=== PATIENT | female | born 1955 | race Caucasian/White ===

== ENCOUNTER 2016-09-13 10:49 | Emergency (ER) | payer MEDICARE ==
--- NOTE | 2016-09-13 11:33 | C.PDOC ---
Addendum entered and electronically signed by Yue Ugalde PA-C 19:15: Physician Patient Turnover - . Patient Signed Over To: Mireille Kumar Handoff Comments: PENDING REPEAT HEAD CT AND DISPO INDICATED Original Note: History Of Present Illness <Yue Ugalde - Last Filed: 09/13/16 19:14> <Mireille Kumar - Last Filed: 09/13/16 20:14> 61-year-old female, PMHx includes Alzheimers and Dementia, presents to the emergency department, brought in by ambulance, accompanied by family with complaints of head injury. Family reports hearing a "thump" after which patient was found on floor, and appeared to have fallen. Patient may have hit her head on the side-table. She was awake and alert, with blood coming from a wound on the head. All other Hx limited due to Alzheimers and Dementia. (Yue Ugalde) - HPI History Per: Patient History/Exam Limitations: no limitations Onset/Duration Of Symptoms: Other (YOUTH COORDINATOR) <Yue Ugalde - Last Filed: 09/13/16 19:14> <Mireille Kumar - Last Filed: 09/13/16 20:14> - HPI Time Seen by Provider: 09/13/16 11:08 Chief Complaint (Nursing): Trauma Past Medical History Reviewed: Historical Data, Nursing Documentation, Vital Signs - Medical History PMH: Alzheimer's Disease, Dementia Family History: States: Unknown Family Hx - Social History Hx Tobacco Use: No Hx Alcohol Use: No Hx Substance Use: No - Immunization History Hx Tetanus Toxoid Vaccination: No Hx Influenza Vaccination: Yes Hx Pneumococcal Vaccination: No <Yue Ugalde - Last Filed: 09/13/16 19:14> Review Of Systems Review Of Systems: ROS cannot be obtained secondary to pt's inabilty to answer questions. <Yue Ugalde - Last Filed: 09/13/16 19:14> Physical Exam - Physical Exam Appears: Well, Non-toxic, No Acute Distress Skin: Warm, Dry Head: Normacephalic, No Swelling (face ), Laceration (0.5cm puncture wound to the left parietal scalp with active bleeding, localized hematoma.), No Other ( facial bone tenderness or asymmetry) Eye(s): bilateral: Normal Inspection, PERRL Nose: Normal Oral Mucosa: Moist Lips: Normal Appearing Neck: Normal ROM, Supple Chest: Symmetrical, No Tenderness Cardiovascular: Rhythm Regular Respiratory: Normal Breath Sounds, No Accessory Muscle Use Gastrointestinal/Abdominal: Normal Exam, Soft Back: Normal Inspection Extremity: Normal ROM Extremity: Bilateral: Atraumatic, Normal Color And Temperature Neurological/Psych: Normal Speech, Other (alert and awake, pt is at her baseline as per family) Gait: Unable To Assess (pt is in stretcher) <Yue Ugalde - Last Filed: 09/13/16 19:14> ED Course And Treatment O2 Sat by Pulse Oximetry: 97 - CT Scan/US CT HEAD Other Rad Studies (CT/US): Read By Radiologist, Radiology Report Reviewed CT/US Interpretation: Accession No. : [id number]. Patient Name / ID : THOMAS MIRANDA / [id number]. Exam Date : 09/13/2016 12:36:36 ( Approved ). Study Comment : Sex / Age : F / 61Y. Creator : Heriberto Aleman. Dictator : Heriberto Aleman. Tank Builder Supervisor : Oyster Cultivator : Heriberto Aleman. Approver2 : Report Date : 09/13/2016 13:46:34. My Comment : . PROCEDURE: CT HEAD WITHOUT CONTRAST. HISTORY: head trauma. COMPARISON: Comparison is made to the previous study dated 08/14/2012. TECHNIQUE: Axial computed tomography images were obtained through the head/brain without intravenous contrast. Radiation dose: Total exam DLP = 973.9 mGy-cm. This CT exam was performed using one or more of the following dose reduction techniques: Automated exposure control, adjustment of the mA and/or kV according to patient size, and/ or use of iterative reconstruction technique. FINDINGS: HEMORRHAGE: Small focus of high attenuation seen at the midline in the frontal upper portion of the brain suspicious for small acute fracture new compared to the previous exam. Otherwise no evidence of acute intracranial hemorrhage. BRAIN: No mass effect or edema. Moderate atrophy and white matter changes are again seen. VENTRICLES: Unremarkable. No hydrocephalus. CALVARIUM: No evidence of acute fracture. Left frontal parietal scalp soft tissue swelling is seen. PARANASAL SINUSES: Unremarkable as visualized. No significant inflammatory changes. MASTOID AIR CELLS: Unremarkable as visualized. No inflammatory changes. OTHER FINDINGS: None. IMPRESSION: New small focus of high attenuation seen at the midline in the upper frontal region image 22 series 2 new compared to the previous exam and suspicious for small subdural hematoma. Close follow-up reassessment after 6 hours is suggested. Otherwise no significant interval change since the previous exam. Moderate atrophy and [id number] white matter changes. <Yue Ugalde - Last Filed: 09/13/16 19:14> Progress <Yue Ugalde - Last Filed: 09/13/16 19:14> <Mireille Kumar - Last Filed: 09/13/16 20:14> - Re-Evaluation Re-evaluation Note: 09/13/16 20:[address] IMPROVED COMPARED TO PRIOR. VSS PT APPEARS NAD, NEURO GROSS INTACT. FAMILY STATES PT IS @ BASELINE. AGREE W DC HOME (Mireille Kumar) Medical Decision Making <Yue Ugalde - Last Filed: 09/13/16 19:14> <Mireille Kumar - Last Filed: 09/13/16 20:14> Medical Decision Making: Plan: * CT Head * Tenivac * Reassess and Disposition PROCEDURE: LACERATION REPAIR Performed by the emergency provider Location: left parietal scalp Length: .5 cm Description: clean wound edges Distal CMS: Normal. No deficits. Neurovascularly intact. Preparation: The wound was cleaned with NS and [place]. The area was prepped and draped in the usual sterile fashion. Exploration: The wound was explored and no foreign bodies were found. Procedure: The wound was closed with 3 yue. Post-Procedure: Good closure and hemostasis. The patient tolerated the procedure well and there were no complications. CSM remains intact. Post procedure dressing applied. ( Yue Ugalde) Disposition - Disposition Disposition Time: 18:58 <Yue Ugalde - Last Filed: 09/13/16 19:14> Counseled Patient/Family Regarding: Studies Performed, Diagnosis, Need For Followup - Disposition Disposition Time: 20:11 <Mireille Kumar - Last Filed: 09/13/16 20:14> - Disposition Referrals: YOUR,PMD [Other] Disposition: HOME/ ROUTINE Condition: IMPROVED Additional Instructions: YOUR REPEAT CT BRAIN IS IMPROVED. TAKE TYLENOL NEEDED FOR PAIN. STAPLE REMOVAL IN 7-10 DAYS. RETURN IF WORSENING SYMPTOMS. FOLLOW UP WITH YOUR PMD THIS WEEK. Instructions: Head Injury (ED), Staple Care (ED), Subdural Hematoma (ED) - Clinical Impression Clinical Impression: Acute head trauma, Scalp laceration, Subdural hematoma, post-traumatic Critical Care Time <Yue Ugalde - Last Filed: 09/13/16 19:14> <Mireille Kumar - Last Filed: 09/13/16 20:14> - Scribe Statement Prabha Curran All medical record entries made by the Scribe were at my direction and personally dictated by me. I have reviewed the chart and agree that the record accurately reflects my personal performance of the history, physical exam, medical decision making, and the department course for this patient. I have also personally directed, reviewed, and agree with the discharge instructions and disposition. (Yue Ugalde)
[2016-09-13] MEDS ORDERED: Tetanus/Diphtheria Toxoids 0.5 ml Syringe IM ONE ×2 (11:34→11:40)
--- NOTE | 2016-09-13 13:48 | CT ---
PROCEDURE: CT HEAD WITHOUT CONTRAST. HISTORY: head trauma COMPARISON: Comparison is made to the previous study dated 08/14/2012 TECHNIQUE: Axial computed tomography images were obtained through the head/brain without intravenous contrast. Radiation dose: Total exam DLP = 973.9 mGy-cm. This CT exam was performed using one or more of the following dose reduction techniques: Automated exposure control, adjustment of the mA and/or kV according to patient size, and/or use of iterative reconstruction technique. FINDINGS: HEMORRHAGE: Small focus of high attenuation seen at the midline in the frontal upper portion of the brain suspicious for small acute fracture new compared to the previous exam. Otherwise no evidence of acute intracranial hemorrhage. BRAIN: No mass effect or edema. Moderate atrophy and white matter changes are again seen. VENTRICLES: Unremarkable. No hydrocephalus. CALVARIUM: No evidence of acute fracture. Left frontal parietal scalp soft tissue swelling is seen. PARANASAL SINUSES: Unremarkable as visualized. No significant inflammatory changes. MASTOID AIR CELLS: Unremarkable as visualized. No inflammatory changes. OTHER FINDINGS: None. IMPRESSION: New small focus of high attenuation seen at the midline in the upper frontal region image 22 series 2 new compared to the previous exam and suspicious for small subdural hematoma. Close follow-up reassessment after 6 hours is suggested. Otherwise no significant interval change since the previous exam. Moderate atrophy and vuuk-vo-[id number] white matter changes.
[2016-09-13 15:26] VITALS: PULSE 72
[2016-09-13 19:17] VITALS: BP 106/70; RESP 20; TEMP 98.3; O2SAT 98
--- NOTE | 2016-09-13 19:56 | CT ---
EXAM: CT Head Without Intravenous Contrast CLINICAL HISTORY: 61 years old, female; Injury or trauma; Fall; Follow-up exam; Swelling (edema); Additional info: Repeat ct, small subdural on previous TECHNIQUE: Axial computed tomography images of the head/brain without intravenous contrast. This CT exam was performed using one or more of the following dose reduction techniques: automated exposure control, adjustment of the mA and/or kV according to patient size, and/or use of iterative reconstruction technique. Coronal reformatted images were created and reviewed. EXAM DATE/TIME: Exam ordered 09/13/2016 6:55 PM COMPARISON: CT - HEAD W/O CONTRAST 09/13/2016 12:36:36 PM FINDINGS: Brain: There is mild cortical atrophy. Unremarkable. No hemorrhage. Mild low density is noted within the periventricular white matter bilaterally. No edema. Ventricles: Unremarkable. No ventriculomegaly. Bones/joints: Unremarkable. No acute fracture. Soft tissues: Surgical clips are noted overlying an area of soft tissue swelling over the left posterior parietal calvarium.. Sinuses: Small air-fluid levels are noted within the maxillary sinuses bilaterally. There is minimal mucosal thickening in the ethmoid air cells bilaterally. No acute sinusitis. Mastoid air cells: Unremarkable as visualized. No mastoid effusion. IMPRESSION: 1. A small hyperdense focus noted along the falx in the frontoparietal region on a head CT done on the same date at 12:37 PM is less conspicuous than previous. Continued followup suggested. 2. Soft tissue swelling overlying the left posterior parietal calvarium without change. 3. Mild cortical atrophy with mild small vessel ischemic change. 4. Small air-fluid levels noted within the maxillary sinuses. Mild mucosal thickening within the ethmoid air cells.
== END 2016-09-13 20:25 | disposition home or self-care (01) ==
LOC: C.ER 10:49
DX: S01.01XA Laceration without foreign body of scalp, initial encounter (principal); S06.5X0A Traumatic subdural hemorrhage without loss of consciousness, initial encounter; W19.XXXA Unspecified fall, initial encounter

== ENCOUNTER 2016-09-29 20:30 | Emergency (ER) | payer MEDICARE ==
--- NOTE | 2016-09-29 21:14 | C.PDOC ---
History Of Present Illness A 61 y/o female brought in by family for bruises over lower extremities. Unable to obtain Hx due to dementia and Alzheimers. Time Seen by Provider: 09/29/16 21:14 Chief Complaint (Nursing): Abdominal Pain History Per: Family History/Exam Limitations: clinical condition Onset/Duration Of Symptoms: Days Current Symptoms Are (Timing): Still Present Context: Other Severity: Mild Pain Scale Rating Of: 2 Location Of Pain/Discomfort: Diffuse Radiation Of Pain To:: None Quality Of Discomfort: Unable To Describe Associated Symptoms: denies: Fever, Chills Exacerbating Factors: denies: Cough Alleviating Factors: denies: None Recent travel outside of the [place]: No Additional History Per: Family Past Medical History Reviewed: Historical Data, Nursing Documentation, Vital Signs Vital Signs: Last Vital Signs Temp 98.1 F 09/29/16 21:10 Pulse 83 09/29/16 21:10 Resp 20 09/29/16 21:10 BP 110/74 09/29/16 21:10 Pulse Ox 97 09/29/16 22:47 - Medical History PMH: Alzheimer's Disease, Dementia Family History: States: Unknown Family Hx - Social History Hx Tobacco Use: No Hx Alcohol Use: No Hx Substance Use: No - Immunization History Hx Tetanus Toxoid Vaccination: Yes (2017) Hx Influenza Vaccination: Yes Hx Pneumococcal Vaccination: No Review Of Systems Review Of Systems: ROS cannot be obtained secondary to pt's inabilty to answer questions. Physical Exam - Physical Exam Appears: Non-toxic, No Acute Distress Skin: Warm, Dry, Other (yue left parietal area, 1x1 cm area of induration r forehead) Head: Normacephalic Eye(s): bilateral: Normal Inspection Oral Mucosa: Moist Throat: Exudate Neck: Trachea Midline, Supple Chest: Symmetrical Cardiovascular: Rhythm Regular, No Murmur Respiratory: No Rales, No Rhonchi, No Wheezing Gastrointestinal/Abdominal: Soft, No Tenderness Back: Normal Inspection Extremity: Normal ROM, No Pedal Edema, Capillary Refill (<2secs), No Deformity, No Swelling Extremity: Bilateral: No Pedal Edema, Normal Color And Temperature, Normal ROM DTR: Ankle (R): 0, Ankle (L): 0 Neurological/Psych: No Normal Cognition, Normal Motor, Other (Awake and alert) Gait: Unsteady ED Course And Treatment - Laboratory Results Result Diagrams: 09/29/16 21:46 09/29/16 21:46 O2 Sat by Pulse Oximetry: 97 (RA) Pulse Ox Interpretation: Normal - Radiology CXR: Interpreted by Me, Viewed By Me CXR Interpretation: No: Infiltrates, Fracture, Pnemothorax - CT Scan/US CT Head w/o contrast Other Rad Studies (CT/US): Interpreted By Me, Read By Radiologist CT/US Interpretation: EXAM: CT Head Without Intravenous Contrast. CLINICAL HISTORY: 61 years old, female; Injury or trauma; Injury Unknown; Initial encounter; Abrasion; Head,. generalized; Additional info: R/O bleed. TECHNIQUE : Axial computed tomography images of the head/brain without intravenous contrast. This CT exam. was performed using one or more of the following dose reduction techniques: automated exposure. control, adjustment of the mA and/or kV according to patient size, and/or use of iterative. reconstruction technique. COMPARISON: CT - HEAD W/O CONTRAST 09/13/2016 7:12:15 PM. FINDINGS : Brain: No acute intracranial hemorrhage. Age-appropriate periventricular white matter disease. No. edema. Interval resolution of the small subdural hemorrhage along the falx in the frontoparietal. region, to the right of midline. Ventricles: Age-appropriate ventriculomegaly. Bones: No acute displaced fracture. Sinuses: Unremarkable as visualized. No acute sinusitis. Mastoid air cells: Unremarkable as visualized. No mastoid effusion. IMPRESSION : No acute intracranial hemorrhage, or suspicious mass effect. Reevaluation Time: 23:54 Reassessment Condition: Improved Medical Decision Making Medical Decision Making: Upon provider reevaluation patient is feeling better, is medically stable, and requires no further treatment in the ED at this time. Patient will be discharged home . Counseling was provided and all questions were answered regarding diagnosis and need for follow up with the referred clinic. There is agreement to discharge plan. Return if symptoms persist or worsen. Disposition Counseled Patient/Family Regarding: Studies Performed, Diagnosis, Need For Followup - Disposition Referrals: [facility] [Outside] [employer] [Outside] Disposition: HOME/ ROUTINE Disposition Time: 21:14 Condition: FAIR Instructions: Chronic Wound Care (ED) - Clinical Impression Clinical Impression: Visit for wound check - Scribe Statement The provider has reviewed the documentation as recorded by the Scribe Luis Enrique butler All medical record entries made by the Scribe were at my direction and personally dictated by me. I have reviewed the chart and agree that the record accurately reflects my personal performance of the history, physical exam, medical decision making, and the department course for this patient. I have also personally directed, reviewed, and agree with the discharge instructions and disposition.
[2016-09-29 21:17] VITALS: RESP 20
[2016-09-29 21:57] LABS: BASO # 0.1 K/uL (0.0-0.2); BASO % 0.6 % (0.0-2.0); EOS # 0.3 K/uL (0.0-0.7); EOS % 3.4 % (0.0-4.0); HEMATOCRIT 39.8 % (34.0-47.0); LYMPH # 2.4 K/uL (1.0-4.3); LYMPH % 30.3 % (20.0-40.0); MEAN CORPUSCULAR HEMOGLOBIN 28.8 pg (27.0-31.0); MEAN CORPUSCULAR HGB CONC 32.8 g/dL (33.0-37.0); MEAN PLATELET VOLUME 7.5 fL (7.2-11.7); MONO # 0.6 K/uL (0.0-0.8); MONO % 7.1 % (0.0-10.0); RED CELL DISTRIBUTION WIDTH 13.4 % (11.5-14.5)
[2016-09-29 22:00] LABS: MEAN CELL VOLUME 87.7 fL (81.0-99.0)
[2016-09-29 22:01] LABS: CHLORIDE 101 mmol/L (98-107); SODIUM 140 mmol/L (132-148)
[2016-09-29 22:02] LABS: POTASSIUM 3.7 mmol/L (3.6-5.2)
[2016-09-29 22:03] LABS: GFR AFRICAN-AMERICAN > 60
[2016-09-29 22:04] LABS: ALB/GLOB RATIO 1.3 (1.0-2.1); ALKALINE PHOSPHATASE 84 U/L (38-126); ALT/SGPT 39 U/L (9-52); AST/SGOT 43 U/L (14-36); BILIRUBIN,TOTAL 0.4 mg/dL (0.2-1.3); BLOOD UREA NITROGEN 20 mg/dL (7-17); CALCIUM 8.7 mg/dl (8.6-10.4); CARBON DIOXIDE 28 mmol/L (22-30); GLUCOSE,RANDOM 101 mg/dL (65-105); TOTAL PROTEIN 6.7 g/dL (6.3-8.3)
[2016-09-29 22:05] LABS: MAGNESIUM 2.1 mg/dL (1.6-2.3)
--- NOTE | 2016-09-29 22:35 | CT ---
EXAM: CT Head Without Intravenous Contrast CLINICAL HISTORY: 61 years old, female; Injury or trauma; Injury Unknown; Initial encounter; Abrasion; Head, generalized; Additional info: R/O bleed TECHNIQUE: Axial computed tomography images of the head/brain without intravenous contrast. This CT exam was performed using one or more of the following dose reduction techniques: automated exposure control, adjustment of the mA and/or kV according to patient size, and/or use of iterative reconstruction technique. COMPARISON: CT - HEAD W/O CONTRAST 09/13/2016 7:12:15 PM FINDINGS: Brain: No acute intracranial hemorrhage. Age-appropriate periventricular white matter disease. No edema. Interval resolution of the small subdural hemorrhage along the falx in the frontoparietal region, to the right of midline. Ventricles: Age-appropriate ventriculomegaly. Bones: No acute displaced fracture. Sinuses: Unremarkable as visualized. No acute sinusitis. Mastoid air cells: Unremarkable as visualized. No mastoid effusion. IMPRESSION: No acute intracranial hemorrhage, or suspicious mass effect.
[2016-09-30 00:03] VITALS: BP 118/70; PULSE 69; TEMP 97; O2SAT 99
--- NOTE | 2016-09-30 09:19 | RAD ---
PROCEDURE: CHEST RADIOGRAPH, 1 VIEW HISTORY: SOB COMPARISON: 12/07/2013 FINDINGS: LUNGS: Biapical pleural thickening. No focal infiltrate or effusion. PLEURA: No pneumothorax or pleural fluid seen. CARDIOVASCULAR: Normal. OSSEOUS STRUCTURES: No significant abnormalities. VISUALIZED UPPER ABDOMEN: Normal. OTHER FINDINGS: None. IMPRESSION: No active disease.
== END 2016-09-30 00:05 | disposition home or self-care (01) ==
LOC: C.ER 20:30
DX: Z48.00 Encounter for change or removal of nonsurgical wound dressing (principal)

== ENCOUNTER 2017-10-21 20:23 | Inpatient (IN) | payer MEDICARE ==
--- NOTE | 2017-10-21 20:47 | C.PDOC ---
History Of Present Illness Patient brought in by daughter after having blood work done this morning that showed abnormal liver function test. Patient is in end stage dementia and is unable to give Hx herself. Daughter denies patient has had fever, chills, nausea , or vomiting. Time Seen by Provider: 10/21/17 20:47 Chief Complaint (Nursing): Abnormal Labs History Per: Patient History/Exam Limitations: no limitations Onset/Duration Of Symptoms: Hrs Current Symptoms Are (Timing): Still Present Recent travel outside of the [place]: No Past Medical History Reviewed: Historical Data, Nursing Documentation, Vital Signs Vital Signs: Last Vital Signs Temp 98.8 F 10/21/17 20:30 Pulse 79 10/22/17 00:56 Resp 14 10/22/17 00:56 BP 91/53 L 10/22/17 00:56 Pulse Ox 96 10/22/17 00:56 - Medical History PMH: Alzheimer's Disease, Dementia Family History: States: No Known Family Hx - Social History Hx Tobacco Use: No Hx Alcohol Use: No Hx Substance Use: No - Immunization History Hx Tetanus Toxoid Vaccination: Yes (2017) Hx Influenza Vaccination: No Hx Pneumococcal Vaccination: No Review Of Systems Review Of Systems: ROS cannot be obtained secondary to pt's inabilty to answer questions. Physical Exam - Physical Exam Appears: Non-toxic, Other (Awake, alert) Skin: Warm, Dry, Pale, Jaundice Head: Normacephalic Eye(s): bilateral: Conjunctiva Pale, Scleral Icterus Oral Mucosa: Dry Chest: Symmetrical, No Tenderness Cardiovascular: Rhythm Regular Respiratory: No Rales, No Rhonchi, No Wheezing Gastrointestinal/Abdominal: Soft, Tenderness (Mild diffuse), No Guarding, No Rebound Extremity: Capillary Refill (<2 seconds), Other (Legs in flexion) Pulses: Left Dorsalis Pedis: Normal, Right Dorsalis Pedis: Normal Neurological/Psych: Other (Orientedx1) ED Course And Treatment - Laboratory Results Result Diagrams: 10/21/17 20:58 10/21/17 20:58 O2 Sat by Pulse Oximetry: 95 (room air) Pulse Ox Interpretation: Normal Progress Note: Blood work, urinalysis, and CT abd/pel ordered. spoke with neurosurgical nurse practitioner. will come and see the pt at bedside. Disposition Discussed With : Blessing Denson Comment: accepted the pt on his service and took over the care at 1:15 AM Doctor Will See Patient In The: Hospital Counseled Patient/Family Regarding: Studies Performed, Diagnosis - Disposition Disposition: HOSPITALIZED Disposition Time: 20:47 Condition: GUARDED Forms: [facility] (Kazakh) - POA Present On Arrival: Poor Glycemic Control - Clinical Impression Clinical Impression: Abdominal pain, Acute cholecystitis - Scribe Statement The provider has reviewed the documentation as recorded by the Scribe Juan Daniel Johnson All medical record entries made by the Scribe were at my direction and personally dictated by me. I have reviewed the chart and agree that the record accurately reflects my personal performance of the history, physical exam, medical decision making, and the department course for this patient. I have also personally directed, reviewed, and agree with the discharge instructions and disposition. Decision To Admit - Pt Status Changed To: Hospital Disposition Of: Inpatient - Admit Certification Admit to Inpatient:: After my assessment, the patient will require hospitalization for at least two midnights. This is because of the severity of symptoms shown, intensity of services needed, and/or the medical risk in this patient being treated as an outpatient. - InPatient: Physician Admission Certification: I certify that this patient requires 2 or more midnights of care for the following reason:: After my assessment, the patient will require hospitalization for at least two midnights. This is because of the severity of symptoms shown, intensity of services needed, and/or the medical risk in this patient being treated as an outpatient. - . Bed Request Type: Regular Admitting Physician: Blessing Denson Patient Diagnosis: Abdominal pain, Acute cholecystitis
[2017-10-21 21:01] LABS: BASO # 0.1 K/uL (0.0-0.2); BASO % 0.4 % (0.0-2.0); EOS # 0.2 K/uL (0.0-0.7); EOS % 1.7 % (0.0-4.0); HEMOGLOBIN 11.7 g/dL (11.0-16.0); LYMPH # 2.5 K/uL (1.0-4.3); LYMPH % 21.3 % (20.0-40.0); MEAN CELL VOLUME 92.8 fL (81.0-99.0); MEAN CORPUSCULAR HGB CONC 33.4 g/dL (33.0-37.0); MEAN PLATELET VOLUME 7.3 fL (7.2-11.7); MONO # 0.9 K/uL (0.0-0.8); NEUT % 68.6 % (50.0-75.0); RBC 3.78 Mil/uL (3.80-5.20); WHITE BLOOD COUNT 11.7 K/uL (4.8-10.8)
[2017-10-21 21:10] LABS: INR 1.3; PROTHROMBIN TIME 14.1 SECONDS (9.7-12.2)
[2017-10-21 21:14] LABS: ALBUMIN 2.9 g/dL (3.5-5.0); ALT/SGPT 364 U/L (9-52); AST/SGOT 109 U/L (14-36); BLOOD UREA NITROGEN 15 mg/dL (7-17); CALCIUM 8.5 mg/dl (8.6-10.4); GFR AFRICAN-AMERICAN > 60; GFR NON-AFRICAN AMERICAN > 60; LIPASE 67 U/L (23-300)
[2017-10-21 21:40] LABS: SQUAMOUS EPITHIAL < 1 /hpf (0-5); URINE AMORPHOUS SEDIMENT RARE /ul (<OCC); URINE BACTERIA OCC (<OCC); URINE BILIRUBIN 1+ (NEGATIVE); URINE BLOOD NEGATIVE (NEGATIVE); URINE CLARITY Hazy (Clear); URINE COLOR Amber (YELLOW); URINE GLUCOSE (UA) NORMAL (Normal); URINE LEUKOCYTE ESTERASE NEG Leu/uL (Negative); URINE PROTEIN NEGATIVE (NEGATIVE)
[2017-10-21] MEDS ORDERED: Iodixanol 320 MG/ML 100 ML BOTTLE IV ONE (22:29)
[2017-10-22] MEDS ORDERED: Piperacillin/Tazobact 3.375 gm 100 ML IVPB STA (01:12)
[2017-10-22] MEDS: Dextrose 5%/0.9% NS 1,000 ML IV SCH ×4 (01:30→21:02)
[2017-10-22] MEDS ORDERED: Dextrose 5%/0.9% NS 1,000 ML IV ONE (01:39)
--- NOTE | 2017-10-22 06:05 | CP.PCM.CON ---
<Matt Mccoy - Last Filed: 10/22/17 07:43> History of Present Illness - History of Present Illness History of Present Illness: Surgery 62 F w PMH of severe dementia was sent by PMH with elevated LFT. Unable to obtain history or ROS from the pt. T bili was 1.7 Alk phose is 790. CT shows numberous gallstones in the gallbladder and irregular thicken gallbladder wall. Surgery is consulted to evaluate for cholecystitis. PMH dementia, subdural hematoma PSH:lac repair of the head Review of Systems - Review of Systems Systems not reviewed;Unavailable: Dementia Past Patient History - Infectious Disease Hx of Infectious Diseases: None - Past Medical History & Family History Past Medical History?: Yes - Past Social History Smoking Status: Never Smoked - CARDIAC Hx Cardiac Disorders: No - PULMONARY Hx Respiratory Disorders: No - NEUROLOGICAL Hx Neurological Disorder: Yes Hx Alzheimer's Disease: Yes Hx Dementia: Yes - HEENT Hx HEENT Problems: No - RENAL Hx Chronic Kidney Disease: No - ENDOCRINE/METABOLIC Hx Endocrine Disorders: No - HEMATOLOGICAL/ONCOLOGICAL Hx Blood Disorders: No - INTEGUMENTARY Hx Dermatological Problems: No - MUSCULOSKELETAL/RHEUMATOLOGICAL Hx Musculoskeletal Disorders: Yes Hx Falls: Yes - GASTROINTESTINAL Hx Gastrointestinal Disorders: No - GENITOURINARY/GYNECOLOGICAL Hx Genitourinary Disorders: Yes Hx Urinary Tract Infection: Yes - PSYCHIATRIC Hx Psychophysiologic Disorder: No Hx Substance Use: No - SURGICAL HISTORY Hx Surgeries: Yes Hx Hysterectomy: Yes - ANESTHESIA Hx Anesthesia: Yes Hx Anesthesia Reactions: No Hx Malignant Hyperthermia: No Meds Allergies/Adverse Reactions: Allergies Allergy/AdvReac Type Severity Reaction Status Date / Time No Known Allergies Allergy Verified 10/21/17 20:38 - Medications Medications: Current Medications Acetaminophen (Tylenol 650 Mg Supp) 650 mg [place] Q6 PRN PRN Reason: Fever >100.4 F Dextrose/Sodium Chloride (Dextrose 5%/0.9% Ns 1000 Ml) 1,000 mls @ 100 mls/hr IV .Q10H ERNIE Last Admin: 10/22/17 01:30 Dose: 100 mls/hr Piperacillin Sod/Tazobactam Sod (Zosyn 3.375 In Ns 100ml) 100 mls @ 200 mls/hr IVPB Q8H ERNIE PRN Reason: Protocol Pantoprazole Sodium (Protonix Inj) 40 mg IVP DAILY ERNIE Physical Exam - Constitutional Appears: No Acute Distress - Head Exam Head Exam: ATRAUMATIC, NORMAL INSPECTION, NORMOCEPHALIC - Eye Exam Eye Exam: EOMI, Normal appearance, PERRL Pupil Exam: NORMAL ACCOMODATION, PERRL - ENT Exam ENT Exam: Mucous Membranes Moist, Normal Exam - Neck Exam Neck exam: Positive for: Normal Inspection - Respiratory Exam Respiratory Exam: Clear to Auscultation Bilateral, NORMAL BREATHING PATTERN - Cardiovascular Exam Cardiovascular Exam: REGULAR RHYTHM - GI/Abdominal Exam GI & Abdominal Exam: Normal Bowel Sounds, Soft. absent: Firm, Guarding, Tenderness - Exam Exam: NORMAL INSPECTION - Extremities Exam Extremities exam: Negative for: full ROM, normal inspection Additional comments: contracted LE - Neurological Exam Neurological exam: Altered - Skin Skin Exam: Dry, Intact, Normal Color, Warm Results - Vital Signs Recent Vital Signs: Last Vital Signs Temp 98.3 F 10/22/17 03:05 Pulse 90 10/22/17 05:27 Resp 20 10/22/17 05:27 BP 101/67 10/22/17 05:27 Pulse Ox 96 10/22/17 05:27 - Labs Result Diagrams: 10/21/17 20:58 10/21/17 20:58 Labs: Laboratory Results - last 24 hr 10/21/17 10/21/17 10/21/17 20:58 20:58 20:58 WBC 11.7 H RBC 3.78 L Hgb 11.7 Hct 35.0 MCV 92.8 D MCH 31.0 MCHC 33.4 RDW 15.0 H Plt Count 213 MPV 7.3 Neut % (Auto) 68.6 Lymph % (Auto) 21.3 [place] % (Auto) 8.0 Eos % (Auto) 1.7 Baso % (Auto) 0.4 Neut # (Auto) 8.0 H Lymph # (Auto) 2.5 [place] # (Auto) 0.9 H Eos # (Auto) 0.2 Baso # (Auto) 0.1 PT 14.1 H INR 1.3 APTT 38 H Sodium 140 Potassium 3.9 Chloride 105 Carbon Dioxide 26 Anion Gap 13 BUN 15 Creatinine 0.4 L Est GFR ( Amer) > 60 Est GFR (Non-Af Amer) > 60 Random Glucose 139 H Calcium 8.5 L Magnesium 2.0 Total Bilirubin 1.7 H AST 109 H ALT 364 H D Alkaline Phosphatase 790 H Total Protein 5.8 L Albumin 2.9 L D Globulin 2.9 Albumin/Globulin Ratio 1.0 Lipase 67 Urine Color Urine Clarity Urine pH Ur Specific [place] Urine Protein Urine Glucose (UA) Urine Ketones Urine Blood Urine Nitrate Urine Bilirubin Urine Urobilinogen Ur Leukocyte Esterase Urine WBC (Auto) Urine RBC (Auto) Ur Squamous Epith Cells Amorphous Sediment Urine Bacteria 10/21/17 21:24 WBC RBC Hgb Hct MCV MCH MCHC RDW Plt Count MPV Neut % (Auto) Lymph % (Auto) [place] % (Auto) Eos % (Auto) Baso % (Auto) Neut # (Auto) Lymph # (Auto) [place] # (Auto) Eos # (Auto) Baso # (Auto) PT INR APTT Sodium Potassium Chloride Carbon Dioxide Anion Gap BUN Creatinine Est GFR ( Amer) Est GFR (Non-Af Amer) Random Glucose Calcium Magnesium Total Bilirubin AST ALT Alkaline Phosphatase Total Protein Albumin Globulin Albumin/Globulin Ratio Lipase Urine Color [place] Urine Clarity Hazy Urine pH 6.0 Ur Specific [place] 1.020 Urine Protein Negative Urine Glucose (UA) Normal Urine Ketones Negative Urine Blood Negative Urine Nitrate Negative Urine Bilirubin 1+ H Urine Urobilinogen 4.0 H Ur Leukocyte Esterase Neg Urine WBC (Auto) 2 Urine RBC (Auto) 5 H Ur Squamous Epith Cells < 1 Amorphous Sediment Rare H Urine Bacteria Occ H Assessment & Plan - Assessment and Plan (Free Text) Assessment: cholelithiasis Tbili 1.7 CT numerous gallstones in gallbladder, irregular thicken gallbladder wall -f/U MRCP -f/u US -ABX -NPO -IVF DW Dr. Ruelas <Harpreet Cruz - Last Filed: 10/22/17 22:46> Meds - Medications Medications: Current Medications Acetaminophen (Tylenol 650 Mg Supp) 650 mg SD Q6H PRN PRN Reason: Fever >100.4 F Albuterol/Ipratropium (Duoneb 3 Mg/0.5 Mg (3 Ml) Ud) 3 ml INH RQ6 [facility] Last Admin: 10/22/17 19:06 Dose: 3 ml Dextrose/Sodium Chloride (Dextrose 5%/0.9% Ns 1000 Ml) 1,000 mls @ 100 mls/hr IV .Q10H ERNIE Last Admin: 10/22/17 21:02 Dose: 100 mls/hr Piperacillin Sod/Tazobactam Sod (Zosyn 2.25 Gm Iv Premix) 2.25 gm in 50 mls @ 100 mls/hr IVPB Q8H ERNIE PRN Reason: Protocol Last Admin: 10/22/17 21:01 Dose: 100 mls/hr Ciprofloxacin (Cipro 200mg/100ml D5w) 100 mls @ 67 mls/hr IVPB Q12H ERNIE PRN Reason: Protocol Last Admin: 10/22/17 12:35 Dose: 67 mls/hr Pantoprazole Sodium (Protonix Inj) 40 mg IVP DAILY [facility] Last Admin: 10/22/17 10:32 Dose: 40 mg Results - Vital Signs Recent Vital Signs: Last Vital Signs Temp 97.3 F L 10/22/17 16:00 Pulse 71 10/22/17 16:00 Resp 20 10/22/17 16:00 BP 98/65 L 10/22/17 16:00 Pulse Ox 96 10/22/17 16:00 - Labs Result Diagrams: 10/22/17 08:55 10/22/17 08:55 Labs: Laboratory Results - last 24 hr 10/22/17 10/22/17 08:55 08:55 WBC 9.3 RBC 3.43 L Hgb 10.9 L Hct 32.0 L MCV 93.3 MCH 31.7 H MCHC 34.0 RDW 14.8 H Plt Count 218 MPV 7.2 Neut % (Auto) 71.7 Lymph % (Auto) 16.0 L [place] % (Auto) 10.4 H Eos % (Auto) 1.5 Baso % (Auto) 0.4 Neut # (Auto) 6.7 Lymph # (Auto) 1.5 [place] # (Auto) 1.0 H Eos # (Auto) 0.1 Baso # (Auto) 0.0 Sodium 140 Potassium 3.6 Chloride 103 Carbon Dioxide 29 Anion Gap 12 BUN 11 Creatinine 0.4 L Est GFR ( Amer) > 60 Est GFR (Non-Af Amer) > 60 Random Glucose 127 H Calcium 8.2 L Total Bilirubin 1.7 H AST 67 H D ALT 278 H D Alkaline Phosphatase 629 H D Total Protein 5.4 L Albumin 2.6 L Globulin 2.8 Albumin/Globulin Ratio 0.9 L
[2017-10-22 09:00] LABS: BASO % 0.4 % (0.0-2.0); EOS # 0.1 K/uL (0.0-0.7); EOS % 1.5 % (0.0-4.0); HEMOGLOBIN 10.9 g/dL (11.0-16.0); LYMPH # 1.5 K/uL (1.0-4.3); MEAN CELL VOLUME 93.3 fL (81.0-99.0); MEAN CORPUSCULAR HEMOGLOBIN 31.7 pg (27.0-31.0); MEAN PLATELET VOLUME 7.2 fL (7.2-11.7); MONO % 10.4 % (0.0-10.0); NEUT # 6.7 K/uL (1.8-7.0); NEUT % 71.7 % (50.0-75.0); RBC 3.43 Mil/uL (3.80-5.20); RED CELL DISTRIBUTION WIDTH 14.8 % (11.5-14.5); WHITE BLOOD COUNT 9.3 K/uL (4.8-10.8)
[2017-10-22] MEDS ORDERED: Piperacillin/Tazobact 3.375 gm 100 ML IVPB SCH (09:00)
[2017-10-22 09:18] LABS: ALB/GLOB RATIO 0.9 (1.0-2.1); ALBUMIN 2.6 g/dL (3.5-5.0); ALT/SGPT 278 U/L (9-52); AST/SGOT 67 U/L (14-36); BLOOD UREA NITROGEN 11 mg/dL (7-17); CALCIUM 8.2 mg/dl (8.6-10.4); GFR AFRICAN-AMERICAN > 60; GFR NON-AFRICAN AMERICAN > 60
--- NOTE | 2017-10-22 10:34 | US ---
HISTORY: Acute cholecystitis COMPARISON: CT abdomen and pelvis from 10/21/2017. TECHNIQUE: [place] scale imaging was performed. FINDINGS: LIVER: Measures 14.2 cm. Normal echogenicity of the liver parenchyma. No mass. No intrahepatic bile duct dilatation. GALLBLADDER: The gallbladder is distended and there are multiple gallstones there is gallbladder wall thickening and pericholecystic fluid. COMMON BILE DUCT: Measures 3.0 mm. No stones. No dilatation. PANCREAS: Normal in size and echotexture. No mass. No ductal dilatation. RIGHT KIDNEY: Measures 10.6cm. Normal echogenicity. No calculus, mass, or hydronephrosis. LEFT KIDNEY: Measures 10.7cm. Normal echogenicity. No calculus, mass, or hydronephrosis. There is a 10 mm complicated septated cyst in the upper pole. SPLEEN: Normal in size and contour. No mass. AORTA: No aneurysmal dilatation. IVC: Unremarkable. OTHER FINDINGS: None. IMPRESSION: Findings are most compatible with acute calculus cholecystitis.
--- NOTE | 2017-10-22 10:57 | CT ---
PROCEDURE: CT Abdomen and Pelvis with contrast HISTORY: elevated liver anzymes, abd pain COMPARISON: None. TECHNIQUE: Contrast dose: 100 mL Visipaque Radiation dose: Total exam DLP = 431.35 mGy-cm. This CT exam was performed using one or more of the following dose reduction techniques: Automated exposure control, adjustment of the mA and/or kV according to patient size, and/or use of iterative reconstruction technique. FINDINGS: LOWER THORAX: There is confluent airspace disease in the right lower lobe. There is subsegmental atelectasis in the left lower lobe. LIVER: There is diffuse fatty infiltration in the liver. There is mild dilatation of intrahepatic bile ducts. GALLBLADDER AND BILE DUCTS: The gallbladder is distended and there are multiple gallstones. There is marked thickening of the gallbladder wall with mucosal enhancement and mild pericholecystic fluid. There are inflammatory changes in the surrounding or bladder fossa. PANCREAS: Normal in size and appearance. No gross lesion or ductal dilatation. SPLEEN: Normal in size and appearance. ADRENALS: No discrete nodule. KIDNEYS AND URETERS: Normal in size with homogeneous enhancement. No hydronephrosis. No solid mass. There is a subcentimeter simple cyst in the right interpolar region and simple cysts in the left upper pole. VASCULATURE: No aortic aneurysm. BOWEL: The small bowel loops are normal in caliber. There is large amount of stool in the colon with fecal stasis in the rectum. APPENDIX: Normal appendix. PERITONEUM: No free fluid. No free air. LYMPH NODES: Unremarkable. No enlarged lymph nodes. BLADDER: Partially decompressed. REPRODUCTIVE: Unremarkable. BONES: No acute fracture. Within normal limits for the patient's age. OTHER FINDINGS: None. IMPRESSION: Findings are most compatible with acute calculus cholecystitis. Please correlate with ultrasound examination. Confluent airspace disease in the right lower lobe may represent pneumonia. Constipation and fecal stasis in the rectum. A preliminary report was provided by [facility].
[2017-10-22] MEDS: Piperacill/Tazo 2.25gm in Dex 2.25 GM/50 ML BAG IVPB SCH ×2 (11:49→21:01)
--- NOTE | 2017-10-22 12:28 | CP.PCM.CON ---
History of Present Illness - History of Present Illness History of Present Illness: INFECTIOUS DISEASE CONSULT; HPI; 62 F w PMH of severe dementia was sent by PMD with elevated LFT. Unable to obtain history or ROS from the pt. T bili was 1.7 Alk phose is 790. CT shows numberous gallstones in the gallbladder and irregular thicken gallbladder wall. HISTORY OBTAINED FROM THE CHART PATIENT UNABLE TO GIVE ANY DETAILS. PATIENT WAS SEEN BY SURGERY AND ABDOMINAL ULTRASOUND WAS SENT TODAY WHICH REPORTED ACUTE CALCULUS CHOLECYSTITIS. PATIENT PRESENTLY NOTHING BY MOUTH. INFECTIOUS DISEASE CONSULTATION REQUESTED BY PMD FOR ACUTE CHOLECYSTITIS/AND RIGHT-SIDED PNEUMONIA. patient was started after appropriate cultures on Zosyn 3.375 every 8 hourly on 10/21/17. PMH: Alzheimer's Disease, Dementia,subdural hematoma. Family History: States: No Known Family Hx - Social History Hx Tobacco Use: No Hx Alcohol Use: No Hx Substance Use: No - Immunization History Hx Tetanus Toxoid Vaccination: Yes (2016) Hx Influenza Vaccination: No Hx Pneumococcal Vaccination: No Review of Systems - Review of Systems Systems not reviewed;Unavailable: Dementia Past Patient History - Infectious Disease Hx of Infectious Diseases: None - Past Medical History & Family History Past Medical History?: Yes - Past Social History Smoking Status: Never Smoked - CARDIAC Hx Cardiac Disorders: No - PULMONARY Hx Respiratory Disorders: No - NEUROLOGICAL Hx Neurological Disorder: Yes Hx Alzheimer's Disease: Yes Hx Dementia: Yes - HEENT Hx HEENT Problems: No - RENAL Hx Chronic Kidney Disease: No - ENDOCRINE/METABOLIC Hx Endocrine Disorders: No - HEMATOLOGICAL/ONCOLOGICAL Hx Blood Disorders: No - INTEGUMENTARY Hx Dermatological Problems: No - MUSCULOSKELETAL/RHEUMATOLOGICAL Hx Musculoskeletal Disorders: Yes Hx Falls: Yes - GASTROINTESTINAL Hx Gastrointestinal Disorders: No - GENITOURINARY/GYNECOLOGICAL Hx Genitourinary Disorders: Yes Hx Urinary Tract Infection: Yes - PSYCHIATRIC Hx Psychophysiologic Disorder: No Hx Substance Use: No - SURGICAL HISTORY Hx Surgeries: Yes Hx Hysterectomy: Yes - ANESTHESIA Hx Anesthesia: Yes Hx Anesthesia Reactions: No Hx Malignant Hyperthermia: No Meds Allergies/Adverse Reactions: Allergies Allergy/AdvReac Type Severity Reaction Status Date / Time No Known Allergies Allergy Verified 10/21/17 20:38 - Medications Medications: Current Medications Acetaminophen (Tylenol 650 Mg Supp) 650 mg [place] Q6 PRN PRN Reason: Fever >100.4 F Albuterol/Ipratropium (Duoneb 3 Mg/0.5 Mg (3 Ml) Ud) 3 ml INH RQ6 ERNIE Dextrose/Sodium Chloride (Dextrose 5%/0.9% Ns 1000 Ml) 1,000 mls @ 100 mls/hr IV .Q10H [facility] Last Admin: 10/22/17 11:49 Dose: Not Given Piperacillin Sod/Tazobactam Sod (Zosyn 2.25 Gm Iv Premix) 2.25 gm in 50 mls @ 100 mls/hr IVPB Q8H ERNIE PRN Reason: Protocol Last Admin: 10/22/17 11:49 Dose: 100 mls/hr Ciprofloxacin (Cipro 200mg/100ml D5w) 100 mls @ 67 mls/hr IVPB Q12H [facility] PRN Reason: Protocol Pantoprazole Sodium (Protonix Inj) 40 mg IVP DAILY [facility] Last Admin: 10/22/17 10:32 Dose: 40 mg Physical Exam - Constitutional Appears: No Acute Distress, Cachectic, Chronically Ill - Head Exam Head Exam: NORMAL INSPECTION - Eye Exam Eye Exam: PERRL, Scleral icterus - ENT Exam ENT Exam: Normal Oropharynx - Neck Exam Neck exam: Positive for: Normal Inspection - Respiratory Exam Respiratory Exam: Rhonchi (right basilar rhonchi), NORMAL BREATHING PATTERN - Cardiovascular Exam Cardiovascular Exam: REGULAR RHYTHM, +S1, +S2. absent: Systolic Murmur - GI/Abdominal Exam GI & Abdominal Exam: Hypoactive Bowel Sounds, Soft. absent: Distended, Guarding - Extremities Exam Extremities exam: Positive for: pedal pulses present. Negative for: calf tenderness, pedal edema - Neurological Exam Neurological exam: Alert - Psychiatric Exam Psychiatric exam: Flat Affect - Skin Skin Exam: Normal Color, Warm Results - Vital Signs Recent Vital Signs: Last Vital Signs Temp 97.8 F 10/22/17 07:00 Pulse 86 10/22/17 07:00 Resp 20 10/22/17 07:00 BP 103/60 10/22/17 07:00 Pulse Ox 97 10/22/17 07:00 - Labs Result Diagrams: 10/22/17 08:55 10/22/17 08:55 Labs: Laboratory Results - last 24 hr 10/21/17 10/21/17 10/21/17 20:58 20:58 20:58 WBC 11.7 H RBC 3.78 L Hgb 11.7 Hct 35.0 MCV 92.8 D MCH 31.0 MCHC 33.4 RDW 15.0 H Plt Count 213 MPV 7.3 Neut % (Auto) 68.6 Lymph % (Auto) 21.3 [place] % (Auto) 8.0 Eos % (Auto) 1.7 Baso % (Auto) 0.4 Neut # (Auto) 8.0 H Lymph # (Auto) 2.5 [place] # (Auto) 0.9 H Eos # (Auto) 0.2 Baso # (Auto) 0.1 PT 14.1 H INR 1.3 APTT 38 H Sodium 140 Potassium 3.9 Chloride 105 Carbon Dioxide 26 Anion Gap 13 BUN 15 Creatinine 0.4 L Est GFR ( Amer) > 60 Est GFR (Non-Af Amer) > 60 Random Glucose 139 H Calcium 8.5 L Magnesium 2.0 Total Bilirubin 1.7 H AST 109 H ALT 364 H D Alkaline Phosphatase 790 H Total Protein 5.8 L Albumin 2.9 L D Globulin 2.9 Albumin/Globulin Ratio 1.0 Lipase 67 Urine Color Urine Clarity Urine pH Ur Specific [place] Urine Protein Urine Glucose (UA) Urine Ketones Urine Blood Urine Nitrate Urine Bilirubin Urine Urobilinogen Ur Leukocyte Esterase Urine WBC (Auto) Urine RBC (Auto) Ur Squamous Epith Cells Amorphous Sediment Urine Bacteria 10/21/17 10/22/17 10/22/17 21:24 08:55 08:55 WBC 9.3 RBC 3.43 L Hgb 10.9 L Hct 32.0 L MCV 93.3 MCH 31.7 H MCHC 34.0 RDW 14.8 H Plt Count 218 MPV 7.2 Neut % (Auto) 71.7 Lymph % (Auto) 16.0 L [place] % (Auto) 10.4 H Eos % (Auto) 1.5 Baso % (Auto) 0.4 Neut # (Auto) 6.7 Lymph # (Auto) 1.5 [place] # (Auto) 1.0 H Eos # (Auto) 0.1 Baso # (Auto) 0.0 PT INR APTT Sodium 140 Potassium 3.6 Chloride 103 Carbon Dioxide 29 Anion Gap 12 BUN 11 Creatinine 0.4 L Est GFR ( Amer) > 60 Est GFR (Non-Af Amer) > 60 Random Glucose 127 H Calcium 8.2 L Magnesium Total Bilirubin 1.7 H AST 67 H D ALT 278 H D Alkaline Phosphatase 629 H D Total Protein 5.4 L Albumin 2.6 L Globulin 2.8 Albumin/Globulin Ratio 0.9 L Lipase Urine Color [place] Urine Clarity Hazy Urine pH 6.0 Ur Specific [place] 1.020 Urine Protein Negative Urine Glucose (UA) Normal Urine Ketones Negative Urine Blood Negative Urine Nitrate Negative Urine Bilirubin 1+ H Urine Urobilinogen 4.0 H Ur Leukocyte Esterase Neg Urine WBC (Auto) 2 Urine RBC (Auto) 5 H Ur Squamous Epith Cells < 1 Amorphous Sediment Rare H Urine Bacteria Occ H - Imaging and Cardiology US - abdomen Status: Report reviewed by me (see report) Assessment & Plan (1) Pneumonia Status: Acute (2) Acute cholecystitis Status: Acute (3) Subdural hematoma, post-traumatic Status: Acute (4) Alzheimer's type dementia Status: Acute - Assessment and Plan (Free Text) Plan: pancultures, Decreased IV Zosyn to 2.25 every 8 hourly . 10/21/17. And IV Cipro 200 mg every 12 hourly for atypical pathogens . 10/22/17. Patient nothing by mouth as per surgery. Patient has pneumonia but if surgical emergency patient to go for cholecystectomy/or cholecystostomy as indicated by surgery undercover of antibiotics. Continue IV fluids. f/u LFTS . F/U PORTABLE CHEST X-RAY-P WILL FOLLOW ALONG WITH YOU.
[2017-10-22] MEDS: Ciprofloxacin 200mg/100ml D5W 100 ML IVPB SCH (12:35)
[2017-10-22] MEDS: Albuterol-Ipratrop 3 mg / 0.5 (3 ml) UD INH SCH ×2 (13:53→19:06)
--- NOTE | 2017-10-22 13:57 | RAD ---
HISTORY: pneumonia COMPARISON: 09/29/2016 FINDINGS: LUNGS: No active pulmonary disease. PLEURA: No significant pleural effusion identified, no pneumothorax apparent. CARDIOVASCULAR: Normal. OSSEOUS STRUCTURES: No significant abnormalities. VISUALIZED UPPER ABDOMEN: Normal. OTHER FINDINGS: None. IMPRESSION: No active disease.
--- NOTE | 2017-10-22 14:03 | CP.PCM.HP ---
History of Present Illness - History of Present Illness History of Present Illness: COMPREHENSIVE HISTORY & PHYSICAL EXAM HPI Patient was brought to the emergency room by the daughter with an abnormal liver function test done outpatient by the PMD. Patient also had a history of vomiting further history not available as patient has severe dementia PAST HIST. History of dementia subdural hematoma in the past PERSONAL HIST: Smoking. N Alcohol. N Allergy N Travel_- . FAMILY HIST : ROS : Not possible as patient has severe dementia P/E: Constitutional: Appears stated age and in no apparent distress. Head: Normocephalic. Ears: External ear canals patent without inflammation. Tympanic membranes intact with normal light reflex and landmark. Eyes: Pupils are central, bilaterally equal, symmetrical and reacts to light with normal movements and no icterus or pallor. Nose: External nares are patent. Mucosa is pink Mouth-Throat: Good general appearance and condition. No post-pharyngeal/oropharyngeal erythema and tonsillar hypertrophy. Good dental hygiene. Neck-Lymphatic: Neck is supple with normal ROM, no thyromegaly, lymph nodes or masses. JVD is normal with no carotid bruit. Lungs: Clear to percussion and auscultation with bilateral normal air entry. Cardiovascular: S1 and S2 are normal with no murmurs, gallops and rub. GI Exam: No hepatomegaly. Abdomen is soft and -tender. No Organomegaly , masses or hernias are evident and bowel sounds are normal and active. Neurology: Higher function and all cranial nerves intact, with no gross motor or sensory deficit. Superficial and deep reflexes are normal with downwards planters. No cerebellar deficit with normal gait. Musculoskeletal: No tender spots with normal curvature of the spine with no swelling or restricted ROM of the small and large joints. Extremities: Homans sign absent. Intact pulses with no pitting edema, calf tenderness or skin color changes. Skin: No rash, eruptions or abnormal skin pigmentation LAB/RADIOLOGY: CT of the next scan shows thickening of the gallbladder and multiple stones ASSESMENT : Acute on chronic cholecystitis. Advanced dementia PLAN: ID and surgical evaluation for antibiotics and further treatment IV fluids nothing by mouth IV antibiotics Present on Admission - Present on Admission Any Indicators Present on Admission: No Past Patient History - Infectious Disease Hx of Infectious Diseases: None - Past Medical History & Family History Past Medical History?: Yes - Past Social History Smoking Status: Never Smoked - CARDIAC Hx Cardiac Disorders: No - PULMONARY Hx Respiratory Disorders: No - NEUROLOGICAL Hx Neurological Disorder: Yes Hx Alzheimer's Disease: Yes Hx Dementia: Yes - HEENT Hx HEENT Problems: No - RENAL Hx Chronic Kidney Disease: No - ENDOCRINE/METABOLIC Hx Endocrine Disorders: No - HEMATOLOGICAL/ONCOLOGICAL Hx Blood Disorders: No - INTEGUMENTARY Hx Dermatological Problems: No - MUSCULOSKELETAL/RHEUMATOLOGICAL Hx Musculoskeletal Disorders: Yes Hx Falls: Yes - GASTROINTESTINAL Hx Gastrointestinal Disorders: No - GENITOURINARY/GYNECOLOGICAL Hx Genitourinary Disorders: Yes Hx Urinary Tract Infection: Yes - PSYCHIATRIC Hx Psychophysiologic Disorder: No Hx Substance Use: No - SURGICAL HISTORY Hx Surgeries: Yes Hx Hysterectomy: Yes - ANESTHESIA Hx Anesthesia: Yes Hx Anesthesia Reactions: No Hx Malignant Hyperthermia: No Meds Allergies/Adverse Reactions: Allergies Allergy/AdvReac Type Severity Reaction Status Date / Time No Known Allergies Allergy Verified 10/21/17 20:38 Results - Vital Signs Recent Vital Signs: Last Vital Signs Temp 97.8 F 10/22/17 07:00 Pulse 84 10/22/17 13:54 Resp 20 10/22/17 07:00 BP 103/60 10/22/17 07:00 Pulse Ox 97 10/22/17 07:00 - Labs Result Diagrams: 10/22/17 08:55 10/22/17 08:55 Labs: Laboratory Results - last 24 hr 10/21/17 10/21/17 10/21/17 20:58 20:58 20:58 WBC 11.7 H RBC 3.78 L Hgb 11.7 Hct 35.0 MCV 92.8 D MCH 31.0 MCHC 33.4 RDW 15.0 H Plt Count 213 MPV 7.3 Neut % (Auto) 68.6 Lymph % (Auto) 21.3 [place] % (Auto) 8.0 Eos % (Auto) 1.7 Baso % (Auto) 0.4 Neut # (Auto) 8.0 H Lymph # (Auto) 2.5 [place] # (Auto) 0.9 H Eos # (Auto) 0.2 Baso # (Auto) 0.1 PT 14.1 H INR 1.3 APTT 38 H Sodium 140 Potassium 3.9 Chloride 105 Carbon Dioxide 26 Anion Gap 13 BUN 15 Creatinine 0.4 L Est GFR ( Amer) > 60 Est GFR (Non-Af Amer) > 60 Random Glucose 139 H Calcium 8.5 L Magnesium 2.0 Total Bilirubin 1.7 H AST 109 H ALT 364 H D Alkaline Phosphatase 790 H Total Protein 5.8 L Albumin 2.9 L D Globulin 2.9 Albumin/Globulin Ratio 1.0 Lipase 67 Urine Color Urine Clarity Urine pH Ur Specific [place] Urine Protein Urine Glucose (UA) Urine Ketones Urine Blood Urine Nitrate Urine Bilirubin Urine Urobilinogen Ur Leukocyte Esterase Urine WBC (Auto) Urine RBC (Auto) Ur Squamous Epith Cells Amorphous Sediment Urine Bacteria 10/21/17 10/22/17 10/22/17 21:24 08:55 08:55 WBC 9.3 RBC 3.43 L Hgb 10.9 L Hct 32.0 L MCV 93.3 MCH 31.7 H MCHC 34.0 RDW 14.8 H Plt Count 218 MPV 7.2 Neut % (Auto) 71.7 Lymph % (Auto) 16.0 L [place] % (Auto) 10.4 H Eos % (Auto) 1.5 Baso % (Auto) 0.4 Neut # (Auto) 6.7 Lymph # (Auto) 1.5 [place] # (Auto) 1.0 H Eos # (Auto) 0.1 Baso # (Auto) 0.0 PT INR APTT Sodium 140 Potassium 3.6 Chloride 103 Carbon Dioxide 29 Anion Gap 12 BUN 11 Creatinine 0.4 L Est GFR ( Amer) > 60 Est GFR (Non-Af Amer) > 60 Random Glucose 127 H Calcium 8.2 L Magnesium Total Bilirubin 1.7 H AST 67 H D ALT 278 H D Alkaline Phosphatase 629 H D Total Protein 5.4 L Albumin 2.6 L Globulin 2.8 Albumin/Globulin Ratio 0.9 L Lipase Urine Color [place] Urine Clarity Hazy Urine pH 6.0 Ur Specific [place] 1.020 Urine Protein Negative Urine Glucose (UA) Normal Urine Ketones Negative Urine Blood Negative Urine Nitrate Negative Urine Bilirubin 1+ H Urine Urobilinogen 4.0 H Ur Leukocyte Esterase Neg Urine WBC (Auto) 2 Urine RBC (Auto) 5 H Ur Squamous Epith Cells < 1 Amorphous Sediment Rare H Urine Bacteria Occ H
[2017-10-23] MEDS: Ciprofloxacin 200mg/100ml D5W 100 ML IVPB SCH ×2 (00:53→12:00)
[2017-10-23] MEDS: Albuterol-Ipratrop 3 mg / 0.5 (3 ml) UD INH SCH ×4 (02:22→19:15)
[2017-10-23] MEDS: Piperacill/Tazo 2.25gm in Dex 2.25 GM/50 ML BAG IVPB SCH ×3 (04:00→20:51)
[2017-10-23] MEDS: Dextrose 5%/0.9% NS 1,000 ML IV SCH ×3 (06:31→22:11)
[2017-10-23 07:46] LABS: BASO % 0.6 % (0.0-2.0); EOS # 0.1 K/uL (0.0-0.7); EOS % 1.9 % (0.0-4.0); HEMOGLOBIN 10.6 g/dL (11.0-16.0); LYMPH % 25.7 % (20.0-40.0); MEAN CORPUSCULAR HEMOGLOBIN 31.8 pg (27.0-31.0); MEAN CORPUSCULAR HGB CONC 34.2 g/dL (33.0-37.0); MEAN PLATELET VOLUME 7.2 fL (7.2-11.7); MONO # 0.9 K/uL (0.0-0.8); MONO % 11.4 % (0.0-10.0); NEUT # 4.6 K/uL (1.8-7.0); NEUT % 60.4 % (50.0-75.0); RBC 3.32 Mil/uL (3.80-5.20); RED CELL DISTRIBUTION WIDTH 14.5 % (11.5-14.5); WHITE BLOOD COUNT 7.7 K/uL (4.8-10.8)
[2017-10-23 08:14] LABS: ALB/GLOB RATIO 0.9 (1.0-2.1); ALBUMIN 2.6 g/dL (3.5-5.0); ALT/SGPT 205 U/L (9-52); AST/SGOT 43 U/L (14-36); BLOOD UREA NITROGEN 5 mg/dL (7-17); CALCIUM 8.5 mg/dl (8.6-10.4); GFR AFRICAN-AMERICAN > 60; GFR NON-AFRICAN AMERICAN > 60
--- NOTE | 2017-10-23 14:04 | CP.PCM.PN ---
Subjective - Date & Time of Evaluation Date of Evaluation: 10/23/17 Time of Evaluation: 14:03 - Subjective Subjective: Patient has advanced dementia cannot communicate with her concerning chief complaint and review of systems. Afebrile blood pressure 130/80 normal respiration Head and nose and throat is normal Lungs are clear to auscultation and percussion Heart S1-S2 normal Abdomen is soft tenderness in the right upper quadrant Extremities moves all extremities with generalized weakness Estimated ultrasound shows acute cholecystitis with gallstones Awaiting MRCP report Continue IV antibiotics Objective - Vital Signs/Intake and Output Vital Signs (last 24 hours): Temp Pulse Resp BP Pulse Ox 98.0 F 100 H 20 100/62 96 10/23/17 09:42 10/23/17 09:42 10/23/17 09:42 10/23/17 09:42 10/23/17 09:42 Intake and Output: 10/23/17 10/23/17 11:59 23:59 Intake Total 800 Balance 800 - Medications Medications: Current Medications Acetaminophen (Tylenol 650 Mg Supp) 650 mg [place] Q6H PRN PRN Reason: Fever >100.4 F Albuterol/Ipratropium (Duoneb 3 Mg/0.5 Mg (3 Ml) Ud) 3 ml INH RQ6 ERNIE Last Admin: 10/23/17 13:13 Dose: 3 ml Dextrose/Sodium Chloride (Dextrose 5%/0.9% Ns 1000 Ml) 1,000 mls @ 100 mls/hr IV .Q10H ERNIE Last Admin: 10/23/17 06:31 Dose: 100 mls/hr Piperacillin Sod/Tazobactam Sod (Zosyn 2.25 Gm Iv Premix) 2.25 gm in 50 mls @ 100 mls/hr IVPB Q8H ERNIE PRN Reason: Protocol Last Admin: 10/23/17 12:00 Dose: 100 mls/hr Ciprofloxacin (Cipro 200mg/100ml D5w) 100 mls @ 67 mls/hr IVPB Q12H ERNIE PRN Reason: Protocol Last Admin: 10/23/17 12:00 Dose: 67 mls/hr Pantoprazole Sodium (Protonix Inj) 40 mg IVP DAILY [facility] Last Admin: 10/23/17 09:18 Dose: 40 mg - Labs Labs: 10/23/17 07:38 10/23/17 07:38 PT 14.1 SECONDS (9.7-12.2) H 10/21/17 20:58 INR 1.3 10/21/17 20:58 APTT 38 SECONDS (21-34) H 10/21/17 20:58
--- NOTE | 2017-10-23 21:10 | CP.PCM.PN ---
Subjective - Date & Time of Evaluation Date of Evaluation: 10/23/17 Time of Evaluation: 21:10 - Subjective Subjective: CHIEF COMPLAINTS TODAY : afebrile,VSS Patient has advanced dementia. Nonverbal Appears comfortable ROS.on observation only HEENT : N. Resp : No cough, wheezing ,pleuritic CP ,or hemoptysis Cardio : No anginal CP, PND, orthopnea, palpitation GI : No abd.pain, n/v ,diarrhea or GI bleeding . 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 Musculoskel : No joint swelling , Derm : No rash Psych : Normal affect. Ext : No swelling ,calf pain PE. Pt. is awake in no distress. V.S As noted in the chart Head ,ear nose,throat and eyes : Normal. Neck : Supple with normal carotids. Lungs: RT SIDED RHONCHI. Heart : S1 & S2 normal with S4. No murmur. Abd : SOFT. NO GUARDING with normal bowel sounds. Neuro : Moves all ext. with no localized deficit. Ext : No edema with intact pulses.Non tender calves Derm : No rashes or decubitus ulcer. LABS/RADIOLOGY: BLOOD CULTURES NEGATIVE TO DATE wbc IMPROVING 7.7 LFTS -IMPROVING ASSESSMENT. PNEUMONIA CHOLELITHIASIS-ABNORMAL LFTS. ? ACUTE CHOLECYSTITIS. ADVANCED DEMENTIA. /PLAN : CONTINUE iv ANTIBIOTICS. IV ZOSYN 2.25 GRAMS EVERY 8 HOURLY IV CIPRO 200 MG EVERY 12 HOURLY [facility] MRCP. PER SURGERY. Objective - Vital Signs/Intake and Output Vital Signs (last 24 hours): Temp Pulse Resp BP Pulse Ox 98.1 F 83 20 92/64 L 96 10/23/17 16:19 10/23/17 16:19 10/23/17 16:19 10/23/17 16:19 10/23/17 16:19 Intake and Output: 10/23/17 10/24/17 18:59 06:59 Intake Total 950 Balance 950 - Medications Medications: Current Medications Acetaminophen (Tylenol 650 Mg Supp) 650 mg [place] Q6H PRN PRN Reason: Fever >100.4 F Albuterol/Ipratropium (Duoneb 3 Mg/0.5 Mg (3 Ml) Ud) 3 ml INH RQ6 ERNIE Last Admin: 10/23/17 19:15 Dose: 3 ml Dextrose/Sodium Chloride (Dextrose 5%/0.9% Ns 1000 Ml) 1,000 mls @ 100 mls/hr IV .Q10H ERNIE Last Admin: 10/23/17 06:31 Dose: 100 mls/hr Piperacillin Sod/Tazobactam Sod (Zosyn 2.25 Gm Iv Premix) 2.25 gm in 50 mls @ 100 mls/hr IVPB Q8H ERNIE PRN Reason: Protocol Last Admin: 10/23/17 20:51 Dose: 100 mls/hr Ciprofloxacin (Cipro 200mg/100ml D5w) 100 mls @ 67 mls/hr IVPB Q12H ERNIE PRN Reason: Protocol Last Admin: 10/23/17 12:00 Dose: 67 mls/hr Pantoprazole Sodium (Protonix Inj) 40 mg IVP DAILY ERNIE Last Admin: 10/23/17 09:18 Dose: 40 mg - Labs Labs: 10/23/17 07:38 10/23/17 07:38 PT 14.1 SECONDS (9.7-12.2) H 10/21/17 20:58 INR 1.3 10/21/17 20:58 APTT 38 SECONDS (21-34) H 10/21/17 20:58 Assessment and Plan (1) Pneumonia Status: Acute (2) Acute cholecystitis Status: Acute (3) Subdural hematoma, post-traumatic Status: Acute (4) Alzheimer's type dementia Status: Acute
[2017-10-24] MEDS: Ciprofloxacin 200mg/100ml D5W 100 ML IVPB SCH ×2 (00:01→12:21)
[2017-10-24] MEDS: Albuterol-Ipratrop 3 mg / 0.5 (3 ml) UD INH SCH ×3 (02:14→13:22)
[2017-10-24] MEDS: Piperacill/Tazo 2.25gm in Dex 2.25 GM/50 ML BAG IVPB SCH ×3 (03:34→20:08)
[2017-10-24] MEDS: Dextrose 5%/0.9% NS 1,000 ML IV SCH ×4 (03:35→22:41)
--- NOTE | 2017-10-24 07:30 | CP.PCM.PN ---
Subjective - Date & Time of Evaluation Date of Evaluation: 10/24/17 Time of Evaluation: 07:27 - Subjective Subjective: General Surgery Progress note for Dr. Ruelas This 62F was seen and evaluated this AM at bedside no acute events reported overnight. Pt unable to communicate. Objective - Vital Signs/Intake and Output Vital Signs (last 24 hours): Temp Pulse Resp BP Pulse Ox 98.2 F 81 20 99/64 L 97 10/24/17 00:42 10/24/17 00:42 10/24/17 00:42 10/24/17 00:42 10/24/17 00:42 Intake and Output: 10/24/17 10/24/17 06:59 18:59 Intake Total 950 Balance 950 - Medications Medications: Current Medications Acetaminophen (Tylenol 650 Mg Supp) 650 mg [place] Q6H PRN PRN Reason: Fever >100.4 F Albuterol/Ipratropium (Duoneb 3 Mg/0.5 Mg (3 Ml) Ud) 3 ml INH RQ6 ERNIE Last Admin: 10/24/17 02:14 Dose: Not Given Dextrose/Sodium Chloride (Dextrose 5%/0.9% Ns 1000 Ml) 1,000 mls @ 100 mls/hr IV .Q10H ERNIE Last Admin: 10/24/17 03:35 Dose: Not Given Piperacillin Sod/Tazobactam Sod (Zosyn 2.25 Gm Iv Premix) 2.25 gm in 50 mls @ 100 mls/hr IVPB Q8H ERNIE PRN Reason: Protocol Last Admin: 10/24/17 03:34 Dose: 100 mls/hr Ciprofloxacin (Cipro 200mg/100ml D5w) 100 mls @ 67 mls/hr IVPB Q12H ERNIE PRN Reason: Protocol Last Admin: 10/24/17 00:01 Dose: 67 mls/hr Pantoprazole Sodium (Protonix Inj) 40 mg IVP DAILY ERNIE Last Admin: 10/23/17 09:18 Dose: 40 mg - Labs Labs: 10/23/17 07:38 10/23/17 07:38 PT 14.1 SECONDS (9.7-12.2) H 10/21/17 20:58 INR 1.3 10/21/17 20:58 APTT 38 SECONDS (21-34) H 10/21/17 20:58 - Constitutional Appears: Non-toxic, No Acute Distress - Head Exam Head Exam: ATRAUMATIC - Respiratory Exam Respiratory Exam: NORMAL BREATHING PATTERN - Cardiovascular Exam Cardiovascular Exam: +S1, +S2 - GI/Abdominal Exam GI & Abdominal Exam: Soft. absent: Distended, Firm, Guarding, Rigid - Extremities Exam Additional comments: Patient is contracted - Neurological Exam Neurological Exam: Awake - Skin Skin Exam: Dry, Normal Color Assessment and Plan - Assessment and Plan (Free Text) Assessment: 62F with cholecyctitis Continue management per medical team Plan for OR later this week for cholecystectomy further recs per Dr. Jessenia Harrison PGY2
[2017-10-24 08:50] LABS: BASO % 0.5 % (0.0-2.0); EOS # 0.2 K/uL (0.0-0.7); EOS % 2.2 % (0.0-4.0); HEMOGLOBIN 10.8 g/dL (11.0-16.0); LYMPH # 2.9 K/uL (1.0-4.3); LYMPH % 37.5 % (20.0-40.0); MEAN CELL VOLUME 94.4 fL (81.0-99.0); MEAN CORPUSCULAR HEMOGLOBIN 31.9 pg (27.0-31.0); MEAN CORPUSCULAR HGB CONC 33.8 g/dL (33.0-37.0); MONO # 0.9 K/uL (0.0-0.8); MONO % 11.2 % (0.0-10.0); NEUT # 3.7 K/uL (1.8-7.0); NEUT % 48.6 % (50.0-75.0); RBC 3.37 Mil/uL (3.80-5.20); RED CELL DISTRIBUTION WIDTH 14.3 % (11.5-14.5); WHITE BLOOD COUNT 7.7 K/uL (4.8-10.8)
[2017-10-24 09:13] LABS: ALB/GLOB RATIO 0.9 (1.0-2.1); ALBUMIN 2.7 g/dL (3.5-5.0); ALT/SGPT 178 U/L (9-52); AST/SGOT 65 U/L (14-36); BLOOD UREA NITROGEN 4 mg/dL (7-17); CALCIUM 8.8 mg/dl (8.6-10.4); GFR AFRICAN-AMERICAN > 60; GFR NON-AFRICAN AMERICAN > 60
[2017-10-24] MEDS ORDERED: Potassium Chloride 20 mEq ER Tab PO SCH (10:00)
--- NOTE | 2017-10-24 15:21 | CP.PCM.PN ---
Subjective - Date & Time of Evaluation Date of Evaluation: 10/24/17 Time of Evaluation: 15:20 - Subjective Subjective: Patient has advanced dementia cannot communicate with her concerning chief complaint and review of systems. Afebrile blood pressure 130/80 normal respiration Head and nose and throat is normal Lungs are clear to auscultation and percussion Heart S1-S2 normal Abdomen is soft tenderness in the right upper quadrant Extremities moves all extremities with generalized weakness Estimated ultrasound shows acute cholecystitis with gallstones Awaiting MRCP report Continue IV antibiotics repeat chest x-ray to evaluate progression of pneumonia Objective - Vital Signs/Intake and Output Vital Signs (last 24 hours): Temp Pulse Resp BP Pulse Ox 97.8 F 78 22 99/64 L 95 10/24/17 08:00 10/24/17 08:00 10/24/17 08:00 10/24/17 00:42 10/24/17 08:00 Intake and Output: 10/24/17 10/24/17 11:59 23:59 Intake Total 800 Balance 800 - Medications Medications: Current Medications Acetaminophen (Tylenol 650 Mg Supp) 650 mg [place] Q6H PRN PRN Reason: Fever >100.4 F Albuterol/Ipratropium (Duoneb 3 Mg/0.5 Mg (3 Ml) Ud) 3 ml INH RQ6 ERNIE Last Admin: 10/24/17 13:22 Dose: 3 ml Dextrose/Sodium Chloride (Dextrose 5%/0.9% Ns 1000 Ml) 1,000 mls @ 100 mls/hr IV .Q10H ERNIE Last Admin: 10/24/17 12:36 Dose: Not Given Piperacillin Sod/Tazobactam Sod (Zosyn 2.25 Gm Iv Premix) 2.25 gm in 50 mls @ 100 mls/hr IVPB Q8H ERNIE PRN Reason: Protocol Last Admin: 10/24/17 11:40 Dose: 100 mls/hr Ciprofloxacin (Cipro 200mg/100ml D5w) 100 mls @ 67 mls/hr IVPB Q12H ERNIE PRN Reason: Protocol Last Admin: 10/24/17 12:21 Dose: 67 mls/hr Pantoprazole Sodium (Protonix Inj) 40 mg IVP DAILY ERNIE Last Admin: 10/24/17 09:46 Dose: 40 mg Potassium Chloride (K-Dur 20 Meq Er Tab) 20 meq PO DAILY ERNIE Last Admin: 10/24/17 10:05 Dose: 20 meq - Labs Labs: 10/24/17 08:40 10/24/17 08:40 PT 14.1 SECONDS (9.7-12.2) H 10/21/17 20:58 INR 1.3 10/21/17 20:58 APTT 38 SECONDS (21-34) H 10/21/17 20:58
--- NOTE | 2017-10-24 16:59 | RAD ---
HISTORY: f/u pneumonia COMPARISON: 10/22/2017. FINDINGS: LUNGS: The lungs are well inflated. There is linear atelectasis/ scarring in the right lower lobe. No focal consolidation. PLEURA: No significant pleural effusion identified, no pneumothorax apparent. CARDIOVASCULAR: Normal. OSSEOUS STRUCTURES: No significant abnormalities. VISUALIZED UPPER ABDOMEN: Normal. OTHER FINDINGS: None. IMPRESSION: No active pulmonary disease.
--- NOTE | 2017-10-24 23:17 | CP.PCM.PN ---
Subjective - Date & Time of Evaluation Date of Evaluation: 10/24/17 Time of Evaluation: 23:16 - Subjective Subjective: CHIEF COMPLAINTS TODAY : afebrile,VSS Appears comfortable seen by SURGERY AND NOTED ROS.on observation only HEENT : N. Resp : No cough, wheezing ,pleuritic CP ,or hemoptysis Cardio : No anginal CP, PND, orthopnea, palpitation GI : No abd.pain, n/v ,diarrhea or GI bleeding . 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 Musculoskel : No joint swelling , Derm : No rash Psych : Normal affect. Ext : No swelling ,calf pain PE. Pt. is awake in no distress. V.S As noted in the chart Head ,ear nose,throat and eyes : Normal. Neck : Supple with normal carotids. Lungs: RT SIDED RHONCHI. Heart : S1 & S2 normal with S4. No murmur. Abd : SOFT. NO GUARDING with normal bowel sounds. Neuro : Moves all ext. with no localized deficit. Ext : No edema with intact pulses.Non tender calves Derm : No rashes or decubitus ulcer. LABS/RADIOLOGY: BLOOD CULTURES NEGATIVE TO DATE wbc IMPROVING 7.7 LFTS -IMPROVING ASSESSMENT. PNEUMONIA CHOLELITHIASIS-ABNORMAL LFTS. ? ACUTE CHOLECYSTITIS. ADVANCED DEMENTIA. /PLAN : CONTINUE iv ANTIBIOTICS. IV ZOSYN 2.25 GRAMS EVERY 8 HOURLY IV CIPRO 200 MG EVERY 12 HOURLY PER SURGERY OR NEXT WEEK. Objective - Vital Signs/Intake and Output Vital Signs (last 24 hours): Temp Pulse Resp BP Pulse Ox 97.8 F 77 20 104/64 98 10/24/17 16:00 10/24/17 16:00 10/24/17 16:00 10/24/17 16:00 10/24/17 16:00 Intake and Output: 10/24/17 10/25/17 18:59 06:59 Intake Total 1750 750 Balance 1750 750 - Medications Medications: Current Medications Acetaminophen (Tylenol 650 Mg Supp) 650 mg [place] Q6H PRN PRN Reason: Fever >100.4 F Albuterol/Ipratropium (Duoneb 3 Mg/0.5 Mg (3 Ml) Ud) 3 ml INH RQ6 ERNIE Last Admin: 10/24/17 13:22 Dose: 3 ml Dextrose/Sodium Chloride (Dextrose 5%/0.9% Ns 1000 Ml) 1,000 mls @ 100 mls/hr IV .Q10H ERNIE Last Admin: 10/24/17 22:41 Dose: 100 mls/hr Piperacillin Sod/Tazobactam Sod (Zosyn 2.25 Gm Iv Premix) 2.25 gm in 50 mls @ 100 mls/hr IVPB Q8H ERNIE PRN Reason: Protocol Last Admin: 10/24/17 20:08 Dose: 100 mls/hr Ciprofloxacin (Cipro 200mg/100ml D5w) 100 mls @ 67 mls/hr IVPB Q12H ERNIE PRN Reason: Protocol Last Admin: 10/24/17 12:21 Dose: 67 mls/hr Pantoprazole Sodium (Protonix Inj) 40 mg IVP DAILY ERNIE Last Admin: 10/24/17 09:46 Dose: 40 mg Potassium Chloride (K-Dur 20 Meq Er Tab) 20 meq PO DAILY ERNIE Last Admin: 10/24/17 10:05 Dose: 20 meq - Labs Labs: 10/24/17 08:40 10/24/17 08:40 PT 14.1 SECONDS (9.7-12.2) H 10/21/17 20:58 INR 1.3 10/21/17 20:58 APTT 38 SECONDS (21-34) H 10/21/17 20:58 Assessment and Plan (1) Pneumonia Status: Acute (2) Acute cholecystitis Status: Acute (3) Subdural hematoma, post-traumatic Status: Acute (4) Alzheimer's type dementia Status: Acute
[2017-10-25] MEDS: Ciprofloxacin 200mg/100ml D5W 100 ML IVPB SCH ×2 (00:13→12:21)
[2017-10-25] MEDS: Albuterol-Ipratrop 3 mg / 0.5 (3 ml) UD INH SCH ×4 (02:44→19:53)
[2017-10-25] MEDS: Piperacill/Tazo 2.25gm in Dex 2.25 GM/50 ML BAG IVPB SCH ×3 (03:28→20:54)
[2017-10-25 06:49] LABS: BASO # 0.1 K/uL (0.0-0.2); BASO % 0.8 % (0.0-2.0); EOS # 0.2 K/uL (0.0-0.7); EOS % 3.2 % (0.0-4.0); HEMOGLOBIN 11.1 g/dL (11.0-16.0); LYMPH # 2.1 K/uL (1.0-4.3); LYMPH % 32.6 % (20.0-40.0); MEAN CELL VOLUME 94.1 fL (81.0-99.0); MEAN CORPUSCULAR HEMOGLOBIN 31.3 pg (27.0-31.0); MEAN CORPUSCULAR HGB CONC 33.2 g/dL (33.0-37.0); MEAN PLATELET VOLUME 6.6 fL (7.2-11.7); MONO # 0.7 K/uL (0.0-0.8); MONO % 11.3 % (0.0-10.0); NEUT # 3.4 K/uL (1.8-7.0); NEUT % 52.1 % (50.0-75.0); RBC 3.56 Mil/uL (3.80-5.20); WHITE BLOOD COUNT 6.5 K/uL (4.8-10.8)
--- NOTE | 2017-10-25 07:32 | CP.PCM.PN ---
Subjective - Date & Time of Evaluation Date of Evaluation: 10/25/17 Time of Evaluation: 07:29 - Subjective Subjective: SURGERY NOTE FOR DR. ARRINGTON 62F seen and examined at bedside. Patient comfortably in bed, demented at baseline. No acute events overnight. Objective - Vital Signs/Intake and Output Vital Signs (last 24 hours): Temp Pulse Resp BP Pulse Ox 97.8 F 71 20 102/67 98 10/25/17 00:00 10/25/17 00:00 10/25/17 00:00 10/25/17 00:00 10/25/17 00:00 Intake and Output: 10/25/17 10/25/17 06:59 18:59 Intake Total 1700 Balance 1700 - Medications Medications: Current Medications Acetaminophen (Tylenol 650 Mg Supp) 650 mg [place] Q6H PRN PRN Reason: Fever >100.4 F Albuterol/Ipratropium (Duoneb 3 Mg/0.5 Mg (3 Ml) Ud) 3 ml INH RQ6 ERNIE Last Admin: 10/25/17 02:44 Dose: Not Given Dextrose/Sodium Chloride (Dextrose 5%/0.9% Ns 1000 Ml) 1,000 mls @ 100 mls/hr IV .Q10H ERNIE Last Admin: 10/24/17 22:41 Dose: 100 mls/hr Piperacillin Sod/Tazobactam Sod (Zosyn 2.25 Gm Iv Premix) 2.25 gm in 50 mls @ 100 mls/hr IVPB Q8H ERNIE PRN Reason: Protocol Last Admin: 10/25/17 03:28 Dose: 100 mls/hr Ciprofloxacin (Cipro 200mg/100ml D5w) 100 mls @ 67 mls/hr IVPB Q12H ERNIE PRN Reason: Protocol Last Admin: 10/25/17 00:13 Dose: 67 mls/hr Pantoprazole Sodium (Protonix Inj) 40 mg IVP DAILY ERNIE Last Admin: 10/24/17 09:46 Dose: 40 mg Potassium Chloride (K-Dur 20 Meq Er Tab) 20 meq PO DAILY ERNIE Last Admin: 10/24/17 10:05 Dose: 20 meq - Labs Labs: 10/25/17 06:35 10/24/17 08:40 PT 14.1 SECONDS (9.7-12.2) H 10/21/17 20:58 INR 1.3 10/21/17 20:58 APTT 38 SECONDS (21-34) H 10/21/17 20:58 - Constitutional Appears: Non-toxic, No Acute Distress - Respiratory Exam Respiratory Exam: Clear to Ausculation Bilateral, NORMAL BREATHING PATTERN - Cardiovascular Exam Cardiovascular Exam: REGULAR RHYTHM, +S1, +S2 - GI/Abdominal Exam GI & Abdominal Exam: Soft. absent: Distended, Firm, Guarding, Rigid, Tenderness - Extremities Exam Extremities Exam: absent: Pedal Edema, Tenderness - Neurological Exam Neurological Exam: Awake - Skin Skin Exam: Dry, Intact, Normal Color, Warm Assessment and Plan - Assessment and Plan (Free Text) Assessment: 62F with cholecystitis Plan: - plan for OR tomorrow Further recs discuss with Dr. Jessenia Long, PGY2
[2017-10-25 07:40] LABS: ALBUMIN 2.9 g/dL (3.5-5.0); ALT/SGPT 165 U/L (9-52); AST/SGOT 69 U/L (14-36); BLOOD UREA NITROGEN 3 mg/dL (7-17); CALCIUM 8.7 mg/dl (8.6-10.4); GFR AFRICAN-AMERICAN > 60; GFR NON-AFRICAN AMERICAN > 60
[2017-10-25] MEDS ORDERED: Pneumococcal 23-Valent Vaccine IM ONE (10:00)
[2017-10-25] MEDS: Dextrose 5%/0.9% NS 1,000 ML IV SCH ×2 (10:28→20:55)
--- NOTE | 2017-10-25 12:48 | CP.PCM.PN ---
Subjective - Date & Time of Evaluation Date of Evaluation: 10/25/17 Time of Evaluation: 12:47 - Subjective Subjective: Patient has advanced dementia cannot communicate with her concerning chief complaint and review of systems. Afebrile blood pressure 130/80 normal respiration Head and nose and throat is normal Lungs are clear to auscultation and percussion Heart S1-S2 normal Abdomen is soft tenderness in the right upper quadrant Extremities moves all extremities with generalized weakness Estimated ultrasound shows acute cholecystitis with gallstones Awaiting MRCP report repeat chest x-ray shows no further pneumonia. As per the surgical evaluation patient is for OR tomorrow. Patient is cleared medically for OR Objective - Vital Signs/Intake and Output Vital Signs (last 24 hours): Temp Pulse Resp BP Pulse Ox 98.7 F 73 20 100/67 97 10/25/17 08:00 10/25/17 08:00 10/25/17 08:00 10/25/17 08:00 10/25/17 08:00 Intake and Output: 10/25/17 10/25/17 11:59 23:59 Intake Total 950 Balance 950 - Medications Medications: Current Medications Acetaminophen (Tylenol 650 Mg Supp) 650 mg [place] Q6H PRN PRN Reason: Fever >100.4 F Albuterol/Ipratropium (Duoneb 3 Mg/0.5 Mg (3 Ml) Ud) 3 ml INH RQ6 ERNIE Last Admin: 10/25/17 08:16 Dose: 3 ml Dextrose/Sodium Chloride (Dextrose 5%/0.9% Ns 1000 Ml) 1,000 mls @ 100 mls/hr IV .Q10H ERNIE Last Admin: 10/25/17 10:28 Dose: 100 mls/hr Piperacillin Sod/Tazobactam Sod (Zosyn 2.25 Gm Iv Premix) 2.25 gm in 50 mls @ 100 mls/hr IVPB Q8H ERNIE PRN Reason: Protocol Last Admin: 10/25/17 12:21 Dose: 100 mls/hr Ciprofloxacin (Cipro 200mg/100ml D5w) 100 mls @ 67 mls/hr IVPB Q12H ERNIE PRN Reason: Protocol Last Admin: 10/25/17 12:21 Dose: 67 mls/hr Potassium Chloride (Potassium Chloride 20 Meq/100 Ml) 20 meq in 100 mls @ 50 mls/hr IVPB Q2H ERNIE Stop: 10/25/17 14:59 Last Admin: 10/25/17 12:29 Dose: 50 mls/hr Pantoprazole Sodium (Protonix Inj) 40 mg IVP DAILY ERNIE Last Admin: 10/25/17 10:24 Dose: 40 mg - Labs Labs: 10/25/17 06:35 10/25/17 06:35 PT 14.1 SECONDS (9.7-12.2) H 10/21/17 20:58 INR 1.3 10/21/17 20:58 APTT 38 SECONDS (21-34) H 10/21/17 20:58
--- NOTE | 2017-10-25 18:52 | CP.PCM.PN ---
Subjective - Date & Time of Evaluation Date of Evaluation: 10/25/17 Time of Evaluation: 18:52 - Subjective Subjective: CHIEF COMPLAINTS TODAY : afebrile,VSS Appears comfortable PT DEMENTED . NO VERBAL COMMUNICATION. seen by SURGERY AND NOTED. FOR OR IN AM ROS.on observation only HEENT : N. Resp : No cough, wheezing ,pleuritic CP ,or hemoptysis Cardio : No anginal CP, PND, orthopnea, palpitation GI : No abd.pain, n/v ,diarrhea or GI bleeding . 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 Musculoskel : No joint swelling , Derm : No rash Psych : Normal affect. Ext : No swelling ,calf pain PE. Pt. is awake in no distress. V.S As noted in the chart Head ,ear nose,throat and eyes : Normal. Neck : Supple with normal carotids. Lungs: CLEAR ANTERIORLY Heart : S1 & S2 normal with S4. No murmur. Abd : SOFT. NO GUARDING with normal bowel sounds. Neuro : Moves all ext. with no localized deficit. Ext : No edema with intact pulses.Non tender calves Derm : No rashes or decubitus ulcer. LABS/RADIOLOGY: WBC6.5 CREAT 0.5/BUN 3 CXR 10/24/17 NO ACTIVE DISEASE BLOOD CULTURES NEGATIVE TO DATE LFTS -IMPROVING ASSESSMENT. ACUTE CHOLECYSTITIS CHOLELITHIASIS-ABNORMAL LFTS PNEUMONIA-RESOLVED ADVANCED DEMENTIA. /PLAN : CONTINUE iv ANTIBIOTICS. IV ZOSYN 2.25 GRAMS EVERY 8 HOURLY IV CIPRO 200 MG EVERY 12 HOURLY PER SURGERY OR IN AM Objective - Vital Signs/Intake and Output Vital Signs (last 24 hours): Temp Pulse Resp BP Pulse Ox 97.5 F L 89 20 99/62 L 98 10/25/17 15:36 10/25/17 15:36 10/25/17 15:36 10/25/17 15:36 10/25/17 15:36 Intake and Output: 10/25/17 10/25/17 06:59 18:59 Intake Total 1700 1050 Balance 1700 1050 - Medications Medications: Current Medications Acetaminophen (Tylenol 650 Mg Supp) [address] Q6H PRN PRN Reason: Fever >100.4 F Albuterol/Ipratropium (Duoneb 3 Mg/0.5 Mg (3 Ml) Ud) 3 ml INH RQ6 ERNIE Last Admin: 10/25/17 14:08 Dose: 3 ml Dextrose/Sodium Chloride (Dextrose 5%/0.9% Ns 1000 Ml) 1,000 mls @ 100 mls/hr IV .Q10H ERNIE Last Admin: 10/25/17 10:28 Dose: 100 mls/hr Piperacillin Sod/Tazobactam Sod (Zosyn 2.25 Gm Iv Premix) 2.25 gm in 50 mls @ 100 mls/hr IVPB Q8H ERNIE PRN Reason: Protocol Last Admin: 10/25/17 12:21 Dose: 100 mls/hr Ciprofloxacin (Cipro 200mg/100ml D5w) 100 mls @ 67 mls/hr IVPB Q12H ERNIE PRN Reason: Protocol Last Admin: 10/25/17 12:21 Dose: 67 mls/hr Pantoprazole Sodium (Protonix Inj) 40 mg IVP DAILY [facility] Last Admin: 10/25/17 10:24 Dose: 40 mg - Labs Labs: 10/25/17 06:35 10/25/17 06:35 PT 14.1 SECONDS (9.7-12.2) H 10/21/17 20:58 INR 1.3 10/21/17 20:58 APTT 38 SECONDS (21-34) H 10/21/17 20:58 Assessment and Plan (1) Pneumonia Status: Acute (2) Acute cholecystitis Status: Acute (3) Subdural hematoma, post-traumatic Status: Acute (4) Alzheimer's type dementia Status: Acute
[2017-10-26] MEDS: Ciprofloxacin 200mg/100ml D5W 100 ML IVPB SCH ×2 (00:01→14:40)
[2017-10-26] MEDS: Albuterol-Ipratrop 3 mg / 0.5 (3 ml) UD INH SCH ×4 (02:17→20:49)
[2017-10-26] MEDS: Piperacill/Tazo 2.25gm in Dex 2.25 GM/50 ML BAG IVPB SCH ×3 (03:27→20:40)
[2017-10-26 07:46] LABS: BASO # 0.1 K/uL (0.0-0.2); BASO % 0.9 % (0.0-2.0); EOS # 0.2 K/uL (0.0-0.7); EOS % 2.8 % (0.0-4.0); HEMOGLOBIN 11.8 g/dL (11.0-16.0); LYMPH # 2.6 K/uL (1.0-4.3); LYMPH % 34.2 % (20.0-40.0); MEAN CELL VOLUME 94.8 fL (81.0-99.0); MEAN CORPUSCULAR HEMOGLOBIN 32.2 pg (27.0-31.0); MEAN CORPUSCULAR HGB CONC 33.9 g/dL (33.0-37.0); MEAN PLATELET VOLUME 6.7 fL (7.2-11.7); MONO # 0.8 K/uL (0.0-0.8); MONO % 10.8 % (0.0-10.0); NEUT # 3.9 K/uL (1.8-7.0); NEUT % 51.3 % (50.0-75.0); NRBC % 0.1 % (0.0-2.0); RBC 3.67 Mil/uL (3.80-5.20); RED CELL DISTRIBUTION WIDTH 14.3 % (11.5-14.5); WHITE BLOOD COUNT 7.7 K/uL (4.8-10.8)
[2017-10-26 07:54] LABS: ALB/GLOB RATIO 1.1 (1.0-2.1); ALBUMIN 3.3 g/dL (3.5-5.0); ALT/SGPT 153 U/L (9-52); AST/SGOT 66 U/L (14-36); BLOOD UREA NITROGEN 3 mg/dL (7-17); CALCIUM 9.3 mg/dl (8.6-10.4); GFR AFRICAN-AMERICAN > 60; GFR NON-AFRICAN AMERICAN > 60
[2017-10-26] MEDS: Dextrose 5%/0.9% NS 1,000 ML IV SCH ×2 (09:21→20:40)
--- NOTE | 2017-10-26 14:03 | CP.PCM.PN ---
Subjective - Date & Time of Evaluation Date of Evaluation: 10/26/17 Time of Evaluation: 13:58 - Subjective Subjective: Patient has advanced dementia cannot communicate with her concerning chief complaint and review of systems. Afebrile blood pressure 130/80 normal respiration Head and nose and throat is normal Lungs are clear to auscultation and percussion Heart S1-S2 normal Abdomen is soft tenderness in the right upper quadrant Extremities moves all extremities with generalized weakness Estimated ultrasound shows acute cholecystitis with gallstones Awaiting MRCP report repeat chest x-ray shows no further pneumonia. OR PER SURGERY Objective - Vital Signs/Intake and Output Vital Signs (last 24 hours): Temp Pulse Resp BP Pulse Ox 97.6 F 78 20 100/60 98 10/25/17 23:19 10/25/17 23:19 10/25/17 23:19 10/25/17 23:19 10/25/17 23:19 Intake and Output: 10/26/17 10/26/17 11:59 23:59 Intake Total 800 Balance 800 - Medications Medications: Current Medications Acetaminophen (Tylenol 650 Mg Supp) 650 mg [place] Q6H PRN PRN Reason: Fever >100.4 F Albuterol/Ipratropium (Duoneb 3 Mg/0.5 Mg (3 Ml) Ud) 3 ml INH RQ6 ERNIE Last Admin: 10/26/17 13:22 Dose: 3 ml Dextrose/Sodium Chloride (Dextrose 5%/0.9% Ns 1000 Ml) 1,000 mls @ 100 mls/hr IV .Q10H ERNIE Last Admin: 10/26/17 09:21 Dose: 100 mls/hr Piperacillin Sod/Tazobactam Sod (Zosyn 2.25 Gm Iv Premix) 2.25 gm in 50 mls @ 100 mls/hr IVPB Q8H ERNIE PRN Reason: Protocol Last Admin: 10/26/17 03:27 Dose: 100 mls/hr Ciprofloxacin (Cipro 200mg/100ml D5w) 100 mls @ 67 mls/hr IVPB Q12H ERNIE PRN Reason: Protocol Last Admin: 10/26/17 00:01 Dose: 67 mls/hr Pantoprazole Sodium (Protonix Inj) 40 mg IVP DAILY ERNIE Last Admin: 10/26/17 09:20 Dose: 40 mg - Labs Labs: 10/26/17 07:31 10/26/17 07:31 PT 14.1 SECONDS (9.7-12.2) H 10/21/17 20:58 INR 1.3 10/21/17 20:58 APTT 38 SECONDS (21-34) H 10/21/17 20:58
--- NOTE | 2017-10-26 19:20 | CP.PCM.PN ---
Subjective - Date & Time of Evaluation Date of Evaluation: 10/26/17 Time of Evaluation: 19:20 - Subjective Subjective: CHIEF COMPLAINTS TODAY : afebrile,VSS Appears comfortable AWAKE, NO N/VOMITING ROS.on observation only HEENT : N. Resp : No cough, wheezing ,pleuritic CP ,or hemoptysis Cardio : No anginal CP, PND, orthopnea, palpitation GI : No abd.pain, n/v ,diarrhea or GI bleeding . WARM IN : No headache, vertigo, focal deficit. Musculoskel : No joint swelling , Derm : No rash Psych : Normal affect. Ext : No swelling ,calf pain PE. Pt. is awake in no distress. V.S As noted in the chart Head ,ear nose,throat and eyes : Normal. Neck : Supple with normal carotids. Lungs: CLEAR ANTERIORLY Heart : S1 & S2 normal with S4. No murmur. Abd : SOFT. NO GUARDING with normal bowel sounds. Neuro : Moves all ext. with no localized deficit. Ext : No edema with intact pulses.Non tender calves Derm : No rashes or decubitus ulcer. LABS/RADIOLOGY: WBC7.7 hEMOGLOBIN 11.8. CREAT 0.5/BUN 3 CXR 10/24/17 NO ACTIVE DISEASE BLOOD CULTURES NEGATIVE TO DATE LFTS -IMPROVING ASSESSMENT. ACUTE CHOLECYSTITIS CHOLELITHIASIS-ABNORMAL LFTS PNEUMONIA-RESOLVED ADVANCED DEMENTIA. /PLAN : CONTINUE iv ANTIBIOTICS. IV ZOSYN 2.25 GRAMS EVERY 8 HOURLY DC IV CIPRO 200 MG EVERY 12 HOURLY 10/26/17 PER SURGERY. Objective - Vital Signs/Intake and Output Vital Signs (last 24 hours): Temp Pulse Resp BP Pulse Ox 97.5 F L 74 96 H 94/64 L 96 10/26/17 16:00 10/26/17 16:00 10/26/17 16:00 10/26/17 16:00 10/26/17 16:00 - Medications Medications: Current Medications Acetaminophen (Tylenol 650 Mg Supp) 650 mg DC Q6H PRN PRN Reason: Fever >100.4 F Albuterol/Ipratropium (Duoneb 3 Mg/0.5 Mg (3 Ml) Ud) 3 ml INH RQ6 ERNIE Last Admin: 10/26/17 13:22 Dose: 3 ml Dextrose/Sodium Chloride (Dextrose 5%/0.9% Ns 1000 Ml) 1,000 mls @ 100 mls/hr IV .Q10H ERNIE Last Admin: 10/26/17 09:21 Dose: 100 mls/hr Piperacillin Sod/Tazobactam Sod (Zosyn 2.25 Gm Iv Premix) 2.25 gm in 50 mls @ 100 mls/hr IVPB Q8H ERNIE PRN Reason: Protocol Last Admin: 10/26/17 14:40 Dose: 100 mls/hr Pantoprazole Sodium (Protonix Inj) 40 mg IVP DAILY ERNIE Last Admin: 10/26/17 09:20 Dose: 40 mg - Labs Labs: 10/26/17 07:31 10/26/17 07:31 PT 14.1 SECONDS (9.7-12.2) H 10/21/17 20:58 INR 1.3 10/21/17 20:58 APTT 38 SECONDS (21-34) H 10/21/17 20:58 Assessment and Plan (1) Pneumonia Status: Acute (2) Acute cholecystitis Status: Acute (3) Subdural hematoma, post-traumatic Status: Acute (4) Alzheimer's type dementia Status: Acute
[2017-10-27] MEDS: Albuterol-Ipratrop 3 mg / 0.5 (3 ml) UD INH SCH ×4 (01:38→13:22)
[2017-10-27] MEDS: Piperacill/Tazo 2.25gm in Dex 2.25 GM/50 ML BAG IVPB SCH ×3 (03:13→20:00)
[2017-10-27] MEDS: Dextrose 5%/0.9% NS 1,000 ML IV SCH ×3 (06:19→21:34)
[2017-10-27 07:15] LABS: BASO # 0.1 K/uL (0.0-0.2); BASO % 0.9 % (0.0-2.0); EOS # 0.2 K/uL (0.0-0.7); EOS % 3.2 % (0.0-4.0); HEMOGLOBIN 11.5 g/dL (11.0-16.0); LYMPH # 2.4 K/uL (1.0-4.3); LYMPH % 31.7 % (20.0-40.0); MEAN CELL VOLUME 94.6 fL (81.0-99.0); MEAN CORPUSCULAR HEMOGLOBIN 32.4 pg (27.0-31.0); MEAN CORPUSCULAR HGB CONC 34.2 g/dL (33.0-37.0); MEAN PLATELET VOLUME 6.5 fL (7.2-11.7); MONO # 0.7 K/uL (0.0-0.8); MONO % 9.8 % (0.0-10.0); NEUT % 54.4 % (50.0-75.0); RBC 3.54 Mil/uL (3.80-5.20); RED CELL DISTRIBUTION WIDTH 14.1 % (11.5-14.5); WHITE BLOOD COUNT 7.4 K/uL (4.8-10.8)
[2017-10-27 07:38] LABS: ALBUMIN 2.8 g/dL (3.5-5.0); ALT/SGPT 117 U/L (9-52); AST/SGOT 42 U/L (14-36); BLOOD UREA NITROGEN 2 mg/dL (7-17); CALCIUM 8.7 mg/dl (8.6-10.4); GFR AFRICAN-AMERICAN > 60; GFR NON-AFRICAN AMERICAN > 60
[2017-10-27] MEDS ORDERED: ceFAZolin 1 gm in NS 0 GM/0 ML BAG IVPB ONE (08:17)
[2017-10-27] MEDS ORDERED: Bupivacaine-Epi 0.5%-1:200,000 PF Inj ONE (08:36)
[2017-10-27] MEDS ORDERED: Lactated Ringer's 1,000 ML IV ONE (08:45)
[2017-10-27] MEDS ORDERED: Rocuronium 10 mg/ml (10 ml) ONE (08:57)
[2017-10-27] MEDS ORDERED: Propofol 10 mg/ml Inj (20 ML) ONE (08:57)
[2017-10-27] MEDS ORDERED: Phenylephrine 10 mg/ml Inj ONE (09:07)
[2017-10-27] MEDS ORDERED: Neostigmine Methylsulfate 3mg/3ml Syringe IV ONE (10:10)
[2017-10-27] MEDS ORDERED: HYDROmorphone 0.5 mg/0.5 ml ISec IVP PRN (10:30)
[2017-10-27] MEDS ORDERED: HYDROmorphone 1 mg/ml ISec IVP PRN (10:59)
--- NOTE | 2017-10-27 13:53 | CP.PCM.PN ---
Subjective - Date & Time of Evaluation Date of Evaluation: 10/27/17 Time of Evaluation: 13:51 - Subjective Subjective: patient is status post lap cholecystectomy Patient has advanced dementia cannot communicate with her concerning chief complaint and review of systems. Afebrile blood pressure 130/80 normal respiration Head and nose and throat is normal Lungs are clear to auscultation and percussion Heart S1-S2 normal Abdomen is soft tenderness in the right upper quadrant. Postop wound Extremities moves all extremities with generalized weakness Continue postop treatment as outlined by surgery Objective - Vital Signs/Intake and Output Vital Signs (last 24 hours): Temp Pulse Resp BP Pulse Ox 98.3 F 61 12 104/57 L 100 10/27/17 11:30 10/27/17 11:30 10/27/17 11:30 10/27/17 11:30 10/27/17 11:30 Intake and Output: 10/27/17 10/27/17 11:59 23:59 Intake Total 800 Balance 800 - Medications Medications: Current Medications Acetaminophen (Tylenol 650 Mg Supp) 650 mg [place] Q6H PRN PRN Reason: Fever >100.4 F Albuterol/Ipratropium (Duoneb 3 Mg/0.5 Mg (3 Ml) Ud) 3 ml INH RQ6 ERNIE Last Admin: 10/27/17 13:22 Dose: 3 ml Hydromorphone HCl (Dilaudid) 1 mg IVP Q4H PRN PRN Reason: Pain, severe (8-10) Dextrose/Sodium Chloride (Dextrose 5%/0.9% Ns 1000 Ml) 1,000 mls @ 100 mls/hr IV .Q10H [facility] Last Admin: 10/27/17 10:30 Dose: Not Given Piperacillin Sod/Tazobactam Sod (Zosyn 2.25 Gm Iv Premix) 2.25 gm in 50 mls @ 100 mls/hr IVPB Q8H ERNIE PRN Reason: Protocol Last Admin: 10/27/17 12:25 Dose: 100 mls/hr Potassium Chloride (Potassium Chloride 20 Meq/100 Ml) 20 meq in 100 mls @ 50 mls/hr IVPB ONCE ONE Stop: 10/27/17 14:44 Last Admin: 10/27/17 13:09 Dose: 50 mls/hr Pantoprazole Sodium (Protonix Inj) 40 mg IVP DAILY [facility] Last Admin: 10/27/17 10:30 Dose: Not Given - Labs Labs: 10/27/17 07:01 10/27/17 07:01 PT 14.1 SECONDS (9.7-12.2) H 10/21/17 20:58 INR 1.3 10/21/17 20:58 APTT 38 SECONDS (21-34) H 10/21/17 20:58
--- NOTE | 2017-10-27 20:36 | OP ---
PROCEDURE DATE: 10/27/2017 PREOPERATIVE DIAGNOSES: Acute and chronic cholecystitis with cholelithiasis. POSTOPERATIVE DIAGNOSES: Acute and chronic cholecystitis with cholelithiasis. PROCEDURE: Laparoscopic cholecystectomy. FINDINGS: The gallbladder was markedly inflamed with very thickened ibrahim and completely enveloped with thick omental adhesions. It is very difficult to identify the structures because of the severe inflammatory fibrosis noted in the area. There were some lesions noted in the peritoneal cavity, especially in the right upper quadrant and around the umbilicus. DESCRIPTION OF PROCEDURE: Under general anesthesia, the patient was prepared and draped in the usual sterile fashion. An incision was made on the upper portion of the umbilicus about an inch and a half diameter down into the fascia. The fascia was then opened into the peritoneal cavity. A drill hole was then inserted after which CO2 was insufflated to about 15 mmHg. Another drill hole was inserted in the epigastric area through which instruments were inserted to mobilize and take down the adhesions noted in the right upper quadrant. A right upper quadrant 5 mm port was then inserted. Portion of the tip of the gallbladder was visualized. It was grabbed and then the adhesions were taken down to expose the upper portion of the gallbladder. Because of ____ tense and very difficult to grab. The gallbladder was partially emptied by inserting a needle and aspirating half of the fluid in the gallbladder. The rest of the adhesions were then taken down to cholecystoduodenal ligament area. It was very difficult to identify the structures, but with the aid of the hydrodissection and blunt dissection, we were able to identify the cystic duct and cystic arteries. They were cut between the clips and the gallbladder was removed from the liver bed with electrocautery. A considerable amount of bleeding was noted during the procedure. However with blunt dissection and with hydrodissection, the gallbladder was removed from the liver bed and was placed in EndoCatch and was extracted through the umbilical port. The area was irrigated with copious amount of saline solution and irrigating fluid was suctioning out. A drain was left and Morison's pouch was brought out through a separate stab wound on the right upper quadrant of the abdomen. The CO2 was allowed to escape from the peritoneal cavity. Trocars were removed. The wound was closed in a routine fashion. Estimated blood loss about 300 mL. The patient tolerated the procedure well, and left the operating room in good condition. Grey Ruelas MD [facility] # [id number]
--- NOTE | 2017-10-27 23:25 | PCM.SURG1 ---
Surgeon's Initial Post Op Note - Surgeon's Notes Surgeon: Dr Ruelas Field Traffic Investigator: Matt Mccoy Type of Anesthesia: General Endo, Local Pre-Operative Diagnosis: cholecystitis gallstone pancreatitis Operative Findings: inflammed gallbladder and surrounding tissues. adhesions. Post-Operative Diagnosis: SAme Operation Performed: Laparoscopic cholecystectomy Specimen/Specimens Removed: Gallbladder Estimated Blood Loss: EBL {In ML}: 100 Blood Products Given: N/A Drains Used: Demetrius Post-Op Condition: Good Date of Surgery/Procedure: 10/27/17 Time of Surgery/Procedure: 23:24
--- NOTE | 2017-10-27 23:32 | CP.PCM.PN ---
Subjective - Date & Time of Evaluation Date of Evaluation: 10/27/17 Time of Evaluation: 23:32 - Subjective Subjective: CHIEF COMPLAINTS TODAY : S/P OR TODAY. LAPRASCOPIC CHOLYCYSTECTOMY 10/27/17. ROS.on observation only HEENT : N. Resp : No cough, wheezing ,pleuritic CP ,or hemoptysis Cardio : No anginal CP, PND, orthopnea, palpitation GI : No abd.pain, n/v ,diarrhea or GI bleeding .+VE CONSTANCE-SEROSANGUINOUS FLUID HOTEL RESERVATION AGENT : No headache, vertigo, focal deficit. Musculoskel : No joint swelling , Derm : No rash Psych : Normal affect. Ext : No swelling ,calf pain PE. Pt. is awake in no distress. V.S As noted in the chart Head ,ear nose,throat and eyes : Normal. Neck : Supple with normal carotids. Lungs: CLEAR ANTERIORLY Heart : S1 & S2 normal with S4. No murmur. Abd : SOFT. POST OPERATIVE +VE CONSTANCE +VESEROSANGUINOUS FLUID. Neuro : Moves all ext. with no localized deficit. Ext : No edema with intact pulses.Non tender calves Derm : No rashes or decubitus ulcer. LABS/RADIOLOGY: REVIEWED CXR 10/24/17 NO ACTIVE DISEASE BLOOD CULTURES NEGATIVE TO DATE LFTS -IMPROVING ASSESSMENT. S/P LAPRASCOPIC CHOLYCYSTECTOMY CHOLELITHIASIS-ABNORMAL LFTS PNEUMONIA-RESOLVED ADVANCED DEMENTIA. PLAN : CONTINUE iv ANTIBIOTICS. IV ZOSYN 2.25 GRAMS EVERY 8 HOURLY POST-OPTIVE CARE PER SURGERY. Objective - Vital Signs/Intake and Output Vital Signs (last 24 hours): Temp Pulse Resp BP Pulse Ox 97.5 F L 73 18 102/62 97 10/27/17 16:00 10/27/17 16:00 10/27/17 16:00 10/27/17 16:00 10/27/17 16:00 Intake and Output: 10/27/17 10/28/17 18:59 06:59 Intake Total 400 900 Output Total 60 50 Balance 340 850 - Medications Medications: Current Medications Acetaminophen (Tylenol 650 Mg Supp) 650 mg [place] Q6H PRN PRN Reason: Fever >100.4 F Hydromorphone HCl (Dilaudid) 1 mg IVP Q4H PRN PRN Reason: Pain, severe (8-10) Dextrose/Sodium Chloride (Dextrose 5%/0.9% Ns 1000 Ml) 1,000 mls @ 100 mls/hr IV .Q10H ERNIE Last Admin: 10/27/17 21:34 Dose: 100 mls/hr Piperacillin Sod/Tazobactam Sod (Zosyn 2.25 Gm Iv Premix) 2.25 gm in 50 mls @ 100 mls/hr IVPB Q8H ERNIE PRN Reason: Protocol Last Admin: 10/27/17 20:00 Dose: 100 mls/hr Pantoprazole Sodium (Protonix Inj) 40 mg IVP DAILY ERNIE Last Admin: 10/27/17 10:30 Dose: Not Given - Labs Labs: 10/27/17 07:01 10/27/17 07:01 PT 14.1 SECONDS (9.7-12.2) H 10/21/17 20:58 INR 1.3 10/21/17 20:58 APTT 38 SECONDS (21-34) H 10/21/17 20:58 Assessment and Plan (1) Pneumonia Status: Acute (2) Acute cholecystitis Status: Acute (3) Subdural hematoma, post-traumatic Status: Acute (4) Alzheimer's type dementia Status: Acute
[2017-10-28] MEDS: Piperacill/Tazo 2.25gm in Dex 2.25 GM/50 ML BAG IVPB SCH ×3 (03:02→20:00)
[2017-10-28] MEDS: Dextrose 5%/0.9% NS 1,000 ML IV SCH ×3 (07:49→22:04)
[2017-10-28 07:53] LABS: BASO # 0.1 K/uL (0.0-0.2); BASO % 0.7 % (0.0-2.0); EOS # 0.3 K/uL (0.0-0.7); EOS % 3.1 % (0.0-4.0); HEMOGLOBIN 9.8 g/dL (11.0-16.0); LYMPH # 2.1 K/uL (1.0-4.3); MEAN CELL VOLUME 94.2 fL (81.0-99.0); MEAN CORPUSCULAR HEMOGLOBIN 32.5 pg (27.0-31.0); MEAN CORPUSCULAR HGB CONC 34.5 g/dL (33.0-37.0); MEAN PLATELET VOLUME 6.7 fL (7.2-11.7); MONO # 0.8 K/uL (0.0-0.8); MONO % 7.7 % (0.0-10.0); NEUT # 6.6 K/uL (1.8-7.0); NEUT % 67.5 % (50.0-75.0); RBC 3.03 Mil/uL (3.80-5.20); RED CELL DISTRIBUTION WIDTH 14.4 % (11.5-14.5); WHITE BLOOD COUNT 9.8 K/uL (4.8-10.8)
[2017-10-28 07:56] LABS: ALBUMIN 2.5 g/dL (3.5-5.0); ALT/SGPT 129 U/L (9-52); AST/SGOT 76 U/L (14-36); BLOOD UREA NITROGEN 4 mg/dL (7-17); CALCIUM 8.4 mg/dl (8.6-10.4); GFR AFRICAN-AMERICAN > 60; GFR NON-AFRICAN AMERICAN > 60
--- NOTE | 2017-10-28 12:05 | CP.PCM.PN ---
Subjective - Date & Time of Evaluation Date of Evaluation: 10/28/17 Time of Evaluation: 12:04 - Subjective Subjective: PATIENT IS POSTOP CHOLECYSTECTOMY. aFEBRILE VITAL SIGNS STABLE pATIENT HAS SEVERE AND ADVANCED MENTAL DERANGEMENT CANNOT COMMUNICATE WITH THE PATIENT pHYSICAL FINDINGS PATIENT HAS CLEAR LUNGS HEART s1-s2 NORMAL AND ABDOMEN SHOWS POSTOP CHANGES pATIENT WILL NEED LONG-TERM REHAB WILL DISCUSS WITH THE DISCHARGE PLANNING Objective - Vital Signs/Intake and Output Vital Signs (last 24 hours): Temp Pulse Resp BP Pulse Ox 98.2 F 84 20 89/51 L 94 L 10/28/17 08:37 10/28/17 08:37 10/28/17 08:37 10/28/17 08:37 10/28/17 08:37 Intake and Output: 10/28/17 10/28/17 11:59 23:59 Intake Total 800 Balance 800 - Medications Medications: Current Medications Acetaminophen (Tylenol 650 Mg Supp) 650 mg [place] Q6H PRN PRN Reason: Fever >100.4 F Hydromorphone HCl (Dilaudid) 1 mg IVP Q4H PRN PRN Reason: Pain, severe (8-10) Dextrose/Sodium Chloride (Dextrose 5%/0.9% Ns 1000 Ml) 1,000 mls @ 100 mls/hr IV .Q10H ERNIE Last Admin: 10/28/17 11:29 Dose: 100 mls/hr Piperacillin Sod/Tazobactam Sod (Zosyn 2.25 Gm Iv Premix) 2.25 gm in 50 mls @ 100 mls/hr IVPB Q8H ERNIE PRN Reason: Protocol Last Admin: 10/28/17 11:30 Dose: 100 mls/hr Pantoprazole Sodium (Protonix Inj) 40 mg IVP DAILY ERNIE Last Admin: 10/28/17 10:09 Dose: 40 mg Tramadol HCl (Ultram) 50 mg PO TID PRN PRN Reason: Pain, moderate (4-7) - Labs Labs: 10/28/17 07:32 10/28/17 07:32 PT 14.1 SECONDS (9.7-12.2) H 10/21/17 20:58 INR 1.3 10/21/17 20:58 APTT 38 SECONDS (21-34) H 10/21/17 20:58
--- NOTE | 2017-10-28 13:47 | CP.PCM.PN ---
Subjective - Date & Time of Evaluation Date of Evaluation: 10/28/17 Time of Evaluation: 13:47 - Subjective Subjective: CHIEF COMPLAINTS TODAY : S/P OR POD # 1 LAPRASCOPIC CHOLYCYSTECTOMY 10/27/17. ROS.on observation only HEENT : N. Resp : No cough, wheezing ,pleuritic CP ,or hemoptysis Cardio : No anginal CP, PND, orthopnea, palpitation GI : +VE abd.pain, n/v ,diarrhea or GI bleeding .+VE CONSTANCE- SEROSANGUINOUS FLUID ORTHOPAEDIC GENERAL : No headache, vertigo, focal deficit. Musculoskel : No joint swelling , Derm : No rash Psych : Normal affect. Ext : No swelling ,calf pain PE. Pt. is awake in no distress. V.S As noted in the chart Head ,ear nose,throat and eyes : Normal. Neck : Supple with normal carotids. Lungs: CLEAR ANTERIORLY Heart : S1 & S2 normal with S4. No murmur. Abd : SOFT. POST OPERATIVE +VE CONSTANCE +VESEROSANGUINOUS FLUID. Neuro : Moves all ext. with no localized deficit. Ext : No edema with intact pulses.Non tender calves Derm : No rashes or decubitus ulcer. LABS/RADIOLOGY: REVIEWED CXR 10/24/17 NO ACTIVE DISEASE BLOOD CULTURES NEGATIVE TO DATE LFTS -AST/ALT SLIGHTLY HIGHER TODAY ASSESSMENT. S/P LAPRASCOPIC CHOLYCYSTECTOMY CHOLELITHIASIS-ABNORMAL LFTS PNEUMONIA-RESOLVED ADVANCED DEMENTIA. PLAN : CONTINUE iv ANTIBIOTICS. IV ZOSYN 2.25 GRAMS EVERY 8 HOURLY POST-OPTIVE CARE PER SURGERY. PT HAS CORY MORENO. DISCUSSED WITH SISTER ANNE-MARIE. ASKING FOR SUBACUTE REHABILITATION X 2WEEKS Objective - Vital Signs/Intake and Output Vital Signs (last 24 hours): Temp Pulse Resp BP Pulse Ox 98.2 F 84 20 89/51 L 94 L 10/28/17 08:37 10/28/17 08:37 10/28/17 08:37 10/28/17 08:37 10/28/17 08:37 Intake and Output: 10/28/17 10/28/17 06:59 18:59 Intake Total 900 800 Output Total 50 Balance 850 800 - Medications Medications: Current Medications Acetaminophen (Tylenol 650 Mg Supp) 650 mg [place] Q6H PRN PRN Reason: Fever >100.4 F Hydromorphone HCl (Dilaudid) 1 mg IVP Q4H PRN PRN Reason: Pain, severe (8-10) Dextrose/Sodium Chloride (Dextrose 5%/0.9% Ns 1000 Ml) 1,000 mls @ 100 mls/hr IV .Q10H [facility] Last Admin: 10/28/17 11:29 Dose: 100 mls/hr Piperacillin Sod/Tazobactam Sod (Zosyn 2.25 Gm Iv Premix) 2.25 gm in 50 mls @ 100 mls/hr IVPB Q8H ERNIE PRN Reason: Protocol Last Admin: 10/28/17 11:30 Dose: 100 mls/hr Pantoprazole Sodium (Protonix Inj) 40 mg IVP DAILY [facility] Last Admin: 10/28/17 10:09 Dose: 40 mg Tramadol HCl (Ultram) 50 mg PO TID PRN PRN Reason: Pain, moderate (4-7) - Labs Labs: 10/28/17 07:32 10/28/17 07:32 PT 14.1 SECONDS (9.7-12.2) H 10/21/17 20:58 INR 1.3 10/21/17 20:58 APTT 38 SECONDS (21-34) H 10/21/17 20:58 Assessment and Plan (1) Pneumonia Status: Acute (2) Acute cholecystitis Status: Acute (3) Subdural hematoma, post-traumatic Status: Acute (4) Alzheimer's type dementia Status: Acute
[2017-10-29] MEDS: Piperacill/Tazo 2.25gm in Dex 2.25 GM/50 ML BAG IVPB SCH ×3 (03:28→20:00)
[2017-10-29] MEDS: Dextrose 5%/0.9% NS 1,000 ML IV SCH ×2 (03:34→08:31)
[2017-10-29 07:48] LABS: BASO % 0.4 % (0.0-2.0); EOS # 0.3 K/uL (0.0-0.7); EOS % 3.6 % (0.0-4.0); HEMOGLOBIN 8.6 g/dL (11.0-16.0); LYMPH # 1.7 K/uL (1.0-4.3); LYMPH % 23.4 % (20.0-40.0); MEAN CORPUSCULAR HEMOGLOBIN 31.4 pg (27.0-31.0); MEAN CORPUSCULAR HGB CONC 31.7 g/dL (33.0-37.0); MONO # 0.6 K/uL (0.0-0.8); MONO % 8.6 % (0.0-10.0); NEUT # 4.6 K/uL (1.8-7.0); RBC 2.73 Mil/uL (3.80-5.20); RED CELL DISTRIBUTION WIDTH 14.5 % (11.5-14.5); WHITE BLOOD COUNT 7.2 K/uL (4.8-10.8)
[2017-10-29 08:12] LABS: ALBUMIN 2.4 g/dL (3.5-5.0); ALT/SGPT 98 U/L (9-52); AST/SGOT 43 U/L (14-36); BLOOD UREA NITROGEN 2 mg/dL (7-17); CALCIUM 7.1 mg/dl (8.6-10.4); GFR AFRICAN-AMERICAN > 60; GFR NON-AFRICAN AMERICAN > 60
[2017-10-29] MEDS ORDERED: Potassium Chloride 20 mEq/15 ml LIQ UD PO STA (08:25)
--- NOTE | 2017-10-29 08:28 | CP.PCM.PN ---
Subjective - Date & Time of Evaluation Date of Evaluation: 10/29/17 Time of Evaluation: 08:26 - Subjective Subjective: General Surgery Progress Note for Dr. Ruelas This 62F was seen and examined by me this AM at bedside. Nurse reports no acute events overnight. Patient is non verbal however does not appear to show any signs of discomfort. Demetrius drain with 15cc sanguinous output. Objective - Vital Signs/Intake and Output Vital Signs (last 24 hours): Temp Pulse Resp BP Pulse Ox 98.5 F 71 20 109/61 98 10/28/17 23:57 10/28/17 23:57 10/28/17 23:57 10/28/17 23:57 10/28/17 23:57 Intake and Output: 10/29/17 10/29/17 06:59 18:59 Intake Total 1700 Output Total 5 Balance 1695 - Medications Medications: Current Medications Acetaminophen (Tylenol 650 Mg Supp) 650 mg [place] Q6H PRN PRN Reason: Fever >100.4 F Hydromorphone HCl (Dilaudid) 1 mg IVP Q4H PRN PRN Reason: Pain, severe (8-10) Dextrose/Sodium Chloride (Dextrose 5%/0.9% Ns 1000 Ml) 1,000 mls @ 100 mls/hr IV .Q10H [facility] Last Admin: 10/29/17 03:34 Dose: Not Given Piperacillin Sod/Tazobactam Sod (Zosyn 2.25 Gm Iv Premix) 2.25 gm in 50 mls @ 100 mls/hr IVPB Q8H ERNIE PRN Reason: Protocol Last Admin: 10/29/17 03:28 Dose: 100 mls/hr Potassium Chloride (Potassium Chloride 20 Meq/100 Ml) 20 meq in 100 mls @ 50 mls/hr IVPB ONCE ONE Stop: 10/29/17 10:23 Pantoprazole Sodium (Protonix Inj) 40 mg IVP DAILY [facility] Last Admin: 10/28/17 10:09 Dose: 40 mg Tramadol HCl (Ultram) 50 mg PO TID PRN PRN Reason: Pain, moderate (4-7) - Labs Labs: 10/29/17 07:23 10/29/17 07:23 PT 14.1 SECONDS (9.7-12.2) H 10/21/17 20:58 INR 1.3 10/21/17 20:58 APTT 38 SECONDS (21-34) H 10/21/17 20:58 - Constitutional Appears: Non-toxic, No Acute Distress - Head Exam Head Exam: ATRAUMATIC, NORMOCEPHALIC - Eye Exam Eye Exam: EOMI - ENT Exam ENT Exam: Mucous Membranes Moist - Respiratory Exam Respiratory Exam: NORMAL BREATHING PATTERN - Cardiovascular Exam Cardiovascular Exam: +S1, +S2 - GI/Abdominal Exam GI & Abdominal Exam: Soft. absent: Firm, Guarding, Rigid, Tenderness Additional comments: Wound well approximated, demetrius drain with sanguinout output. - Neurological Exam Neurological Exam: Alert, Awake - Psychiatric Exam Psychiatric exam: Normal Affect, Normal Mood - Skin Skin Exam: Dry, Intact Assessment and Plan - Assessment and Plan (Free Text) Assessment: 62F POD# 2 s/p Lap [place] Monitor drain output Monitor h/h Continue FLD may advance if tolerated Replete electrolytes PRN Further recs per Dr. Jessenia Harrison PGY2
[2017-10-29 11:16] LABS: BASO # 0.1 K/uL (0.0-0.2); BASO % 0.7 % (0.0-2.0); EOS # 0.2 K/uL (0.0-0.7); EOS % 3.1 % (0.0-4.0); HEMOGLOBIN 10.3 g/dL (11.0-16.0); LYMPH # 1.7 K/uL (1.0-4.3); LYMPH % 21.5 % (20.0-40.0); MEAN CELL VOLUME 93.9 fL (81.0-99.0); MEAN CORPUSCULAR HEMOGLOBIN 31.9 pg (27.0-31.0); MEAN PLATELET VOLUME 6.6 fL (7.2-11.7); MONO # 0.6 K/uL (0.0-0.8); MONO % 8.1 % (0.0-10.0); NEUT # 5.2 K/uL (1.8-7.0); NEUT % 66.6 % (50.0-75.0); NRBC % 0.1 % (0.0-2.0); RBC 3.22 Mil/uL (3.80-5.20); RED CELL DISTRIBUTION WIDTH 13.9 % (11.5-14.5); WHITE BLOOD COUNT 7.7 K/uL (4.8-10.8)
[2017-10-29 11:29] LABS: ALBUMIN 2.8 g/dL (3.5-5.0); ALT/SGPT 106 U/L (9-52); AST/SGOT 40 U/L (14-36); BLOOD UREA NITROGEN < 2 mg/dL (7-17); CALCIUM 8.5 mg/dl (8.6-10.4); GFR AFRICAN-AMERICAN > 60; GFR NON-AFRICAN AMERICAN > 60
--- NOTE | 2017-10-29 13:52 | CP.PCM.PN ---
Subjective - Date & Time of Evaluation Date of Evaluation: 10/29/17 Time of Evaluation: 13:49 - Subjective Subjective: PATIENT IS POSTOP CHOLECYSTECTOMY. aFEBRILE VITAL SIGNS STABLE pATIENT HAS SEVERE AND ADVANCED MENTAL DERANGEMENT CANNOT COMMUNICATE WITH THE PATIENT pHYSICAL FINDINGS PATIENT HAS CLEAR LUNGS HEART s1-s2 NORMAL AND ABDOMEN SHOWS POSTOP CHANGES patient still has serosanguineous discharge from the drainage, decreasing from yesterday. Discussed with discharge planning. Patient has no insurance coverage for long- term care or rehab. when the drainage has stopped,Will discharge the patient home. Objective - Vital Signs/Intake and Output Vital Signs (last 24 hours): Temp Pulse Resp BP Pulse Ox 97.4 F L 77 20 106/74 96 10/29/17 09:21 10/29/17 09:21 10/29/17 09:21 10/29/17 09:21 10/29/17 09:21 Intake and Output: 10/29/17 10/29/17 11:59 23:59 Intake Total 800 Output Total 5 Balance 795 - Medications Medications: Current Medications Acetaminophen (Tylenol 650 Mg Supp) 650 mg [place] Q6H PRN PRN Reason: Fever >100.4 F Hydromorphone HCl (Dilaudid) 1 mg IVP Q4H PRN PRN Reason: Pain, severe (8-10) Piperacillin Sod/Tazobactam Sod (Zosyn 2.25 Gm Iv Premix) 2.25 gm in 50 mls @ 100 mls/hr IVPB Q8H ERNIE PRN Reason: Protocol Last Admin: 10/29/17 12:13 Dose: 100 mls/hr Potassium Chloride (Potassium Chloride 20 Meq/100 Ml) 20 meq in 100 mls @ 50 mls/hr IVPB ONCE ONE Stop: 10/29/17 14:59 Last Admin: 10/29/17 13:48 Dose: 50 mls/hr Pantoprazole Sodium (Protonix Inj) 40 mg IVP DAILY [facility] Last Admin: 10/29/17 10:14 Dose: 40 mg Tramadol HCl (Ultram) 50 mg PO TID PRN PRN Reason: Pain, moderate (4-7) - Labs Labs: 10/29/17 11:09 10/29/17 11:09 PT 14.1 SECONDS (9.7-12.2) H 10/21/17 20:58 INR 1.3 06/21/18 20:58 APTT 38 SECONDS (21-34) H 10/21/17 20:58
--- NOTE | 2017-10-29 14:06 | CP.PCM.PN ---
Subjective - Date & Time of Evaluation Date of Evaluation: 10/29/17 Time of Evaluation: 14:06 - Subjective Subjective: CHIEF COMPLAINTS TODAY : S/P OR POD # 2 LAPRASCOPIC CHOLYCYSTECTOMY 10/27/17. AFEBRILE APPEARS COMFORTABLE. NONVERBAL SEC TO ADVANCED DEMENTIA. ROS.on observation only HEENT : N. Resp : No cough, wheezing ,pleuritic CP ,or hemoptysis Cardio : No anginal CP, PND, orthopnea, palpitation GI : +VE abd.pain, n/v ,diarrhea or GI bleeding .+VE CONSTANCE- SEROSANGUINOUS FLUID JANITORIAL ASSISTANT : No headache, vertigo, focal deficit. Musculoskel : No joint swelling , Derm : No rash Psych : Normal affect. Ext : No swelling ,calf pain PE. Pt. is awake in no distress. V.S As noted in the chart Head ,ear nose,throat and eyes : Normal. Neck : Supple with normal carotids. Lungs: CLEAR ANTERIORLY Heart : S1 & S2 normal with S4. No murmur. Abd : SOFT. POST OPERATIVE +VE CONSTANCE +VESEROSANGUINOUS FLUID. Neuro : Moves all ext. with no localized deficit. Ext : No edema with intact pulses.Non tender calves Derm : No rashes or decubitus ulcer. LABS/RADIOLOGY: REVIEWED CXR 10/24/17 NO ACTIVE DISEASE BLOOD CULTURES NEGATIVE TO DATE LFTS -AST/ALT SLIGHTLY HIGHER TODAY ASSESSMENT. S/P LAPRASCOPIC CHOLYCYSTECTOMY CHOLELITHIASIS-ABNORMAL LFTS PNEUMONIA-RESOLVED ADVANCED DEMENTIA. PLAN : CONTINUE iv ANTIBIOTICS. IV ZOSYN 2.25 GRAMS EVERY 8 HOURLY POST-OPTIVE CARE PER SURGERY. PT HAS CORY MORENO. MONITOR h&h. dISPOSITION PER pmd AND DESIGN SPECIALIST. Objective - Vital Signs/Intake and Output Vital Signs (last 24 hours): Temp Pulse Resp BP Pulse Ox 97.4 F L 77 20 106/74 96 10/29/17 09:21 10/29/17 09:21 10/29/17 09:21 10/29/17 09:21 10/29/17 09:21 Intake and Output: 10/29/17 10/29/17 06:59 18:59 Intake Total 1700 Output Total 5 Balance 1695 - Medications Medications: Current Medications Acetaminophen (Tylenol 650 Mg Supp) 650 mg [place] Q6H PRN PRN Reason: Fever >100.4 F Hydromorphone HCl (Dilaudid) 1 mg IVP Q4H PRN PRN Reason: Pain, severe (8-10) Piperacillin Sod/Tazobactam Sod (Zosyn 2.25 Gm Iv Premix) 2.25 gm in 50 mls @ 100 mls/hr IVPB Q8H ERNIE PRN Reason: Protocol Last Admin: 10/29/17 12:13 Dose: 100 mls/hr Potassium Chloride (Potassium Chloride 20 Meq/100 Ml) 20 meq in 100 mls @ 50 mls/hr IVPB ONCE ONE Stop: 10/29/17 14:59 Last Admin: 10/29/17 13:48 Dose: 50 mls/hr Pantoprazole Sodium (Protonix Inj) 40 mg IVP DAILY [facility] Last Admin: 10/29/17 10:14 Dose: 40 mg Tramadol HCl (Ultram) 50 mg PO TID PRN PRN Reason: Pain, moderate (4-7) - Labs Labs: 10/29/17 11:09 10/29/17 11:09 PT 14.1 SECONDS (9.7-12.2) H 10/21/17 20:58 INR 1.3 10/21/17 20:58 APTT 38 SECONDS (21-34) H 10/21/17 20:58 Assessment and Plan (1) Pneumonia Status: Acute (2) Acute cholecystitis Status: Acute (3) Subdural hematoma, post-traumatic Status: Acute (4) Alzheimer's type dementia Status: Acute
[2017-10-29] MEDS ORDERED: HYDROmorphone 0.5 mg/0.5 ml ISec IVP PRN (14:57)
[2017-10-30] MEDS: Piperacill/Tazo 2.25gm in Dex 2.25 GM/50 ML BAG IVPB SCH ×3 (03:24→20:11)
--- NOTE | 2017-10-30 14:14 | CP.PCM.PN ---
Subjective - Date & Time of Evaluation Date of Evaluation: 10/30/17 Time of Evaluation: 14:13 - Subjective Subjective: PATIENT IS POSTOP CHOLECYSTECTOMY. aFEBRILE VITAL SIGNS STABLE pATIENT HAS SEVERE AND ADVANCED MENTAL DERANGEMENT CANNOT COMMUNICATE WITH THE PATIENT pHYSICAL FINDINGS PATIENT HAS CLEAR LUNGS HEART s1-s2 NORMAL AND ABDOMEN SHOWS POSTOP CHANGES patient still has serosanguineous discharge from the drainage, decreasing from yesterday. Discussed with discharge planning. Patient has no insurance coverage for long- term care or rehab. when the drainage has stopped,Will discharge the patient home. Objective - Vital Signs/Intake and Output Vital Signs (last 24 hours): Temp Pulse Resp BP Pulse Ox 97.9 F 79 20 107/74 97 10/30/17 07:00 10/30/17 07:00 10/30/17 07:00 10/30/17 07:00 10/30/17 07:00 Intake and Output: 10/30/17 10/30/17 11:59 23:59 Intake Total 160 Output Total 10 Balance 150 - Medications Medications: Current Medications Acetaminophen (Tylenol 650 Mg Supp) 650 mg [place] Q6H PRN PRN Reason: Fever >100.4 F Hydromorphone HCl (Dilaudid) 0.5 mg IVP Q4H PRN PRN Reason: Pain, severe (8-10) Piperacillin Sod/Tazobactam Sod (Zosyn 2.25 Gm Iv Premix) 2.25 gm in 50 mls @ 100 mls/hr IVPB Q8H ERNIE PRN Reason: Protocol Last Admin: 10/30/17 12:49 Dose: 100 mls/hr Pantoprazole Sodium (Protonix Inj) 40 mg IVP DAILY [facility] Last Admin: 10/30/17 10:31 Dose: 40 mg Tramadol HCl (Ultram) 50 mg PO TID PRN PRN Reason: Pain, moderate (4-7) - Labs Labs: 10/29/17 11:09 10/29/17 11:09 PT 14.1 SECONDS (9.7-12.2) H 10/21/17 20:58 INR 1.3 10/21/17 20:58 APTT 38 SECONDS (21-34) H 10/21/17 20:58
--- NOTE | 2017-10-30 20:48 | CP.PCM.PN ---
Subjective - Date & Time of Evaluation Date of Evaluation: 10/30/17 Time of Evaluation: 20:48 - Subjective Subjective: CHIEF COMPLAINTS TODAY : S/P OR POD # 3 LAPRASCOPIC CHOLYCYSTECTOMY 10/27/17. afebrile Drain in place. SS fluids. No issues as per RN ROS.on observation only HEENT : N. Resp : No cough, wheezing ,pleuritic CP ,or hemoptysis Cardio : No anginal CP, PND, orthopnea, palpitation GI : +VE abd.pain, n/v ,diarrhea or GI bleeding .+VE CONSTANCE- SEROSANGUINOUS FLUID SENIOR RESERVATIONS AGENT : No headache, vertigo, focal deficit. Musculoskel : No joint swelling , Derm : No rash Psych : Normal affect. Ext : No swelling ,calf pain PE. Pt. is awake in no distress. V.S As noted in the chart Head ,ear nose,throat and eyes : Normal. Neck : Supple with normal carotids. Lungs: CLEAR ANTERIORLY Heart : S1 & S2 normal with S4. No murmur. Abd : SOFT. POST OPERATIVE +VE CONSTANCE +VE SEROSANGUINOUS FLUID. Neuro : Moves all ext. with no localized deficit. Ext : No edema with intact pulses.Non tender calves Derm : No rashes or decubitus ulcer. LABS/RADIOLOGY: REVIEWED CXR 10/24/17 NO ACTIVE DISEASE BLOOD CULTURES NEGATIVE TO DATE LFTS -AST/ALT SLIGHTLY HIGHER TODAY ASSESSMENT. S/P LAPRASCOPIC CHOLYCYSTECTOMY CHOLELITHIASIS-ABNORMAL LFTS PNEUMONIA-RESOLVED ADVANCED DEMENTIA. PLAN : CONTINUE iv ANTIBIOTICS. IV ZOSYN 2.25 GRAMS EVERY 8 HOURLY POST-OPTIVE CARE PER SURGERY. PT HAS CORY DRAINING. MONITOR h&h. Objective - Vital Signs/Intake and Output Vital Signs (last 24 hours): Temp Pulse Resp BP Pulse Ox 97.3 F L 79 20 94/62 L 97 10/30/17 15:00 10/30/17 15:00 10/30/17 15:00 10/30/17 15:00 10/30/17 15:00 Intake and Output: 10/30/17 10/31/17 18:59 06:59 Intake Total 260 Output Total 25 Balance 235 - Medications Medications: Current Medications Acetaminophen (Tylenol 650 Mg Supp) 650 mg [place] Q6H PRN PRN Reason: Fever >100.4 F Hydromorphone HCl (Dilaudid) 0.5 mg IVP Q4H PRN PRN Reason: Pain, severe (8-10) Piperacillin Sod/Tazobactam Sod (Zosyn 2.25 Gm Iv Premix) 2.25 gm in 50 mls @ 100 mls/hr IVPB Q8H ERNIE PRN Reason: Protocol Last Admin: 10/30/17 20:11 Dose: 100 mls/hr Pantoprazole Sodium (Protonix Inj) 40 mg IVP DAILY [facility] Last Admin: 10/30/17 10:31 Dose: 40 mg Tramadol HCl (Ultram) 50 mg PO TID PRN PRN Reason: Pain, moderate (4-7) - Labs Labs: 10/29/17 11:09 10/29/17 11:09 PT 14.1 SECONDS (9.7-12.2) H 10/21/17 20:58 INR 1.3 10/21/17 20:58 APTT 38 SECONDS (21-34) H 10/21/17 20:58 Assessment and Plan (1) Pneumonia Status: Acute (2) Acute cholecystitis Status: Acute (3) Subdural hematoma, post-traumatic Status: Acute (4) Alzheimer's type dementia Status: Acute
--- NOTE | 2017-10-30 22:14 | CP.PCM.PN ---
Subjective - Date & Time of Evaluation Date of Evaluation: 10/30/17 Time of Evaluation: 22:12 - Subjective Subjective: Surgery Pt seen and examined. Drain in place. SS fluids. Pt difficult to communicate. No issues. Objective - Vital Signs/Intake and Output Vital Signs (last 24 hours): Temp Pulse Resp BP Pulse Ox 97.3 F L 79 20 94/62 L 97 10/30/17 15:00 10/30/17 15:00 10/30/17 15:00 10/30/17 15:00 10/30/17 15:00 Intake and Output: 10/30/17 10/31/17 18:59 06:59 Intake Total 260 Output Total 25 Balance 235 - Medications Medications: Current Medications Acetaminophen (Tylenol 650 Mg Supp) 650 mg [place] Q6H PRN PRN Reason: Fever >100.4 F Hydromorphone HCl (Dilaudid) 0.5 mg IVP Q4H PRN PRN Reason: Pain, severe (8-10) Piperacillin Sod/Tazobactam Sod (Zosyn 2.25 Gm Iv Premix) 2.25 gm in 50 mls @ 100 mls/hr IVPB Q8H ERNIE PRN Reason: Protocol Last Admin: 10/30/17 20:11 Dose: 100 mls/hr Pantoprazole Sodium (Protonix Inj) 40 mg IVP DAILY [facility] Last Admin: 10/30/17 10:31 Dose: 40 mg Tramadol HCl (Ultram) 50 mg PO TID PRN PRN Reason: Pain, moderate (4-7) - Labs Labs: 10/29/17 11:09 10/29/17 11:09 PT 14.1 SECONDS (9.7-12.2) H 10/21/17 20:58 INR 1.3 10/21/17 20:58 APTT 38 SECONDS (21-34) H 10/21/17 20:58 - Constitutional Appears: Confused, Cachectic, Chronically Ill - Head Exam Head Exam: ATRAUMATIC, NORMAL INSPECTION, NORMOCEPHALIC - Eye Exam Eye Exam: EOMI, Normal appearance, PERRL Pupil Exam: NORMAL ACCOMODATION, PERRL - ENT Exam ENT Exam: Mucous Membranes Moist, Normal Exam - Neck Exam Neck Exam: Full ROM, Normal Inspection. absent: Lymphadenopathy - Respiratory Exam Respiratory Exam: NORMAL BREATHING PATTERN - Cardiovascular Exam Cardiovascular Exam: REGULAR RHYTHM, +S1, +S2. absent: Murmur - GI/Abdominal Exam GI & Abdominal Exam: absent: Distended, Guarding, Rigid, Soft, Tenderness Additional comments: Drain in place. - Exam Exam: NORMAL INSPECTION - Extremities Exam Extremities Exam: absent: Full ROM, Normal Inspection Additional comments: contracted - Back Exam Back Exam: NORMAL INSPECTION - Neurological Exam Neurological Exam: Altered, Awake. absent: Alert, Normal Gait, Oriented x3 - Skin Skin Exam: Dry, Intact, Normal Color, Warm Assessment and Plan - Assessment and Plan (Free Text) Assessment: POD e s/p lap [place] minimal drainage Clear for DC for surgical standpoint WIll DC drain before going home DW Dr. Ruelas
[2017-10-31] MEDS: Piperacill/Tazo 2.25gm in Dex 2.25 GM/50 ML BAG IVPB SCH ×3 (03:02→19:44)
--- NOTE | 2017-10-31 15:14 | CP.PCM.PN ---
Subjective - Date & Time of Evaluation Date of Evaluation: 10/31/17 Time of Evaluation: 15:14 - Subjective Subjective: PATIENT IS POSTOP CHOLECYSTECTOMY. aFEBRILE VITAL SIGNS STABLE pATIENT HAS SEVERE AND ADVANCED MENTAL DERANGEMENT CANNOT COMMUNICATE WITH THE PATIENT pHYSICAL FINDINGS PATIENT HAS CLEAR LUNGS HEART s1-s2 NORMAL AND ABDOMEN SHOWS POSTOP CHANGES patient still has serosanguineous discharge from the drainage, decreasing from yesterday. Discussed with discharge planning. Patient has no insurance coverage for long- term care or rehab. when the drainage has stopped,Will discharge the patient home. Objective - Vital Signs/Intake and Output Vital Signs (last 24 hours): Temp Pulse Resp BP Pulse Ox 97.4 F L 67 20 100/67 98 10/31/17 07:40 10/31/17 07:40 10/31/17 07:40 10/31/17 07:40 10/31/17 07:40 Intake and Output: 10/31/17 10/31/17 11:59 23:59 Intake Total 100 Balance 100 - Medications Medications: Current Medications Acetaminophen (Tylenol 650 Mg Supp) 650 mg [place] Q6H PRN PRN Reason: Fever >100.4 F Hydromorphone HCl (Dilaudid) 0.5 mg IVP Q4H PRN PRN Reason: Pain, severe (8-10) Piperacillin Sod/Tazobactam Sod (Zosyn 2.25 Gm Iv Premix) 2.25 gm in 50 mls @ 100 mls/hr IVPB Q8H ERNIE PRN Reason: Protocol Last Admin: 10/31/17 11:40 Dose: 100 mls/hr Pantoprazole Sodium (Protonix Inj) 40 mg IVP DAILY [facility] Last Admin: 10/31/17 10:03 Dose: 40 mg Tramadol HCl (Ultram) 50 mg PO TID PRN PRN Reason: Pain, moderate (4-7) - Labs Labs: 10/29/17 11:09 10/29/17 11:09 PT 14.1 SECONDS (9.7-12.2) H 10/21/17 20:58 INR 1.3 10/21/17 20:58 APTT 38 SECONDS (21-34) H 10/21/17 20:58
[2017-11-01] MEDS: Piperacill/Tazo 2.25gm in Dex 2.25 GM/50 ML BAG IVPB SCH ×3 (03:18→19:30)
--- NOTE | 2017-11-01 10:06 | CP.PCM.PN ---
Subjective - Date & Time of Evaluation Date of Evaluation: 11/01/17 Time of Evaluation: 06:45 - Subjective Subjective: 62 yo F, POD5 s/p Lap [place], was seen and examined this AM at bedside. Nurse reports no acute events overnight. Patient is non verbal however does not appear to show any signs of discomfort or distress. Objective - Vital Signs/Intake and Output Vital Signs (last 24 hours): Temp Pulse Resp BP Pulse Ox 97.6 F 72 20 100/65 99 11/01/17 08:00 11/01/17 08:00 11/01/17 08:00 11/01/17 08:00 11/01/17 08:00 Intake and Output: 11/01/17 11/01/17 06:59 18:59 Intake Total 180 Balance 180 - Medications Medications: Current Medications Acetaminophen (Tylenol 650 Mg Supp) 650 mg [place] Q6H PRN PRN Reason: Fever >100.4 F Hydromorphone HCl (Dilaudid) 0.5 mg IVP Q4H PRN PRN Reason: Pain, severe (8-10) Piperacillin Sod/Tazobactam Sod (Zosyn 2.25 Gm Iv Premix) 2.25 gm in 50 mls @ 100 mls/hr IVPB Q8H ERNIE PRN Reason: Protocol Last Admin: 11/01/17 03:18 Dose: 100 mls/hr Pantoprazole Sodium (Protonix Inj) 40 mg IVP DAILY [facility] Last Admin: 11/01/17 09:26 Dose: 40 mg Tramadol HCl (Ultram) 50 mg PO TID PRN PRN Reason: Pain, moderate (4-7) - Labs Labs: 10/29/17 11:09 10/29/17 11:09 PT 14.1 SECONDS (9.7-12.2) H 10/21/17 20:58 INR 1.3 10/21/17 20:58 APTT 38 SECONDS (21-34) H 10/21/17 20:58 - Constitutional Appears: Non-toxic, No Acute Distress - Head Exam Head Exam: ATRAUMATIC, NORMAL INSPECTION, NORMOCEPHALIC - Eye Exam Eye Exam: EOMI, Normal appearance, PERRL - ENT Exam ENT Exam: Mucous Membranes Moist, Normal Exam - Respiratory Exam Respiratory Exam: Clear to Ausculation Bilateral, NORMAL BREATHING PATTERN - Cardiovascular Exam Cardiovascular Exam: REGULAR RHYTHM, +S1, +S2. absent: Murmur - GI/Abdominal Exam GI & Abdominal Exam: Soft, Normal Bowel Sounds. absent: Distended, Firm, Guarding, Rigid, Tenderness, Rebound - Neurological Exam Neurological Exam: Alert, Awake - Skin Skin Exam: Dry, Intact Assessment and Plan - Assessment and Plan (Free Text) Assessment: 62F POD#5 s/p Lap [place] Plan: Monitor drain output Monitor h/h Continue FLD may advance if tolerated - will f/u with family decision regarding PEG Replete electrolytes PRN Further recs per Dr. Jessenia Martin PGY-3
--- NOTE | 2017-11-01 13:31 | CP.PCM.PN ---
Subjective - Date & Time of Evaluation Date of Evaluation: 11/01/17 Time of Evaluation: 13:31 - Subjective Subjective: CHIEF COMPLAINTS TODAY : S/P OR POD # 5 LAPRASCOPIC CHOLYCYSTECTOMY 10/27/17. afebrile Drain REMOVED No issues as per RN POOR ORAL INTAKE ROS.on observation only HEENT : N. 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 Musculoskel : No joint swelling , Derm : No rash Psych : Normal affect. Ext : No swelling ,calf pain PE. Pt. is awake in no distress. V.S As noted in the chart Head ,ear nose,throat and eyes : Normal. Neck : Supple with normal carotids. Lungs: CLEAR ANTERIORLY Heart : S1 & S2 normal with S4. No murmur. Abd : SOFT. POST OPERATIVE . DRAIN REMOVED Neuro : Moves all ext. with no localized deficit. Ext : No edema with intact pulses.Non tender calves Derm : No rashes or decubitus ulcer. LABS/RADIOLOGY: REVIEWED WBC 7.7 H/H 10.3/30.7 PLT OK LFTS IMPROVING ALB 2.8 CXR 10/24/17 NO ACTIVE DISEASE BLOOD CULTURES NEGATIVE TO DATE PATH REPORT; chronic cholycystitis/cholelithiasis no malignancy ASSESSMENT. S/P LAPRASCOPIC CHOLYCYSTECTOMY CHOLELITHIASIS-ABNORMAL LFTS PNEUMONIA-RESOLVED ADVANCED DEMENTIA. PLAN : CONTINUE iv ANTIBIOTICS. IV ZOSYN 2.25 GRAMS EVERY 8 HOURLY X 2 DAYS MORE i.e 11/02, 11/03/17. POST-OPTIVE CARE PER SURGERY. MONITOR h&h. SURGERY RECOMMENDING PEG. PER FAMILY Objective - Vital Signs/Intake and Output Vital Signs (last 24 hours): Temp Pulse Resp BP Pulse Ox 97.6 F 72 20 100/65 99 11/01/17 08:00 11/01/17 08:00 11/01/17 08:00 11/01/17 08:00 11/01/17 08:00 Intake and Output: 11/01/17 11/01/17 06:59 18:59 Intake Total 180 Balance 180 - Medications Medications: Current Medications Acetaminophen (Tylenol 650 Mg Supp) 650 mg [place] Q6H PRN PRN Reason: Fever >100.4 F Hydromorphone HCl (Dilaudid) 0.5 mg IVP Q4H PRN PRN Reason: Pain, severe (8-10) Piperacillin Sod/Tazobactam Sod (Zosyn 2.25 Gm Iv Premix) 2.25 gm in 50 mls @ 100 mls/hr IVPB Q8H ERNIE PRN Reason: Protocol Last Admin: 11/01/17 12:34 Dose: 100 mls/hr Pantoprazole Sodium (Protonix Inj) 40 mg IVP DAILY [facility] Last Admin: 11/01/17 09:26 Dose: 40 mg Tramadol HCl (Ultram) 50 mg PO TID PRN PRN Reason: Pain, moderate (4-7) - Labs Labs: 10/29/17 11:09 10/29/17 11:09 PT 14.1 SECONDS (9.7-12.2) H 10/21/17 20:58 INR 1.3 10/21/17 20:58 APTT 38 SECONDS (21-34) H 10/21/17 20:58 Assessment and Plan (1) Pneumonia Status: Acute (2) Acute cholecystitis Status: Acute (3) Subdural hematoma, post-traumatic Status: Acute (4) Alzheimer's type dementia Status: Acute
--- NOTE | 2017-11-01 13:35 | CP.PCM.PN ---
Subjective - Date & Time of Evaluation Date of Evaluation: 11/01/17 Time of Evaluation: 13:34 - Subjective Subjective: Patient has advanced dementia difficult to evaluate symptoms and complaints. And review of systems Afebrile blood pressure 130/80 mmHg. Lungs are clear to auscultation and percussion. Heart S1-S2 normal. Abdomen is soft nontender. Patient has a poor intake. Discussed with family for PEG.. Patient's family will have to participate in the feeding of the patient through the PEG Objective - Vital Signs/Intake and Output Vital Signs (last 24 hours): Temp Pulse Resp BP Pulse Ox 97.6 F 72 20 100/65 99 11/01/17 08:00 11/01/17 08:00 11/01/17 08:00 11/01/17 08:00 11/01/17 08:00 Intake and Output: 11/01/17 11/01/17 11:59 23:59 Intake Total 180 Balance 180 - Medications Medications: Current Medications Acetaminophen (Tylenol 650 Mg Supp) 650 mg [place] Q6H PRN PRN Reason: Fever >100.4 F Hydromorphone HCl (Dilaudid) 0.5 mg IVP Q4H PRN PRN Reason: Pain, severe (8-10) Piperacillin Sod/Tazobactam Sod (Zosyn 2.25 Gm Iv Premix) 2.25 gm in 50 mls @ 100 mls/hr IVPB Q8H ERNIE PRN Reason: Protocol Last Admin: 11/01/17 12:34 Dose: 100 mls/hr Pantoprazole Sodium (Protonix Inj) 40 mg IVP DAILY [facility] Last Admin: 11/01/17 09:26 Dose: 40 mg Tramadol HCl (Ultram) 50 mg PO TID PRN PRN Reason: Pain, moderate (4-7) - Labs Labs: 10/29/17 11:09 10/29/17 11:09 PT 14.1 SECONDS (9.7-12.2) H 10/21/17 20:58 INR 1.3 10/21/17 20:58 APTT 38 SECONDS (21-34) H 10/21/17 20:58
[2017-11-02] MEDS: Piperacill/Tazo 2.25gm in Dex 2.25 GM/50 ML BAG IVPB SCH ×3 (03:18→20:00)
[2017-11-02 06:38] LABS: BASO # 0.1 K/uL (0.0-0.2); BASO % 1.1 % (0.0-2.0); EOS # 0.3 K/uL (0.0-0.7); EOS % 4.4 % (0.0-4.0); HEMOGLOBIN 11.1 g/dL (11.0-16.0); LYMPH # 2.3 K/uL (1.0-4.3); LYMPH % 32.1 % (20.0-40.0); MEAN CELL VOLUME 92.8 fL (81.0-99.0); MEAN CORPUSCULAR HEMOGLOBIN 31.5 pg (27.0-31.0); MEAN CORPUSCULAR HGB CONC 33.9 g/dL (33.0-37.0); MEAN PLATELET VOLUME 6.6 fL (7.2-11.7); MONO # 0.5 K/uL (0.0-0.8); MONO % 6.9 % (0.0-10.0); NEUT % 55.5 % (50.0-75.0); NRBC % 0.1 % (0.0-2.0); RBC 3.52 Mil/uL (3.80-5.20); RED CELL DISTRIBUTION WIDTH 13.7 % (11.5-14.5); WHITE BLOOD COUNT 7.2 K/uL (4.8-10.8)
[2017-11-02 06:52] LABS: ALB/GLOB RATIO 1.3 (1.0-2.1); ALBUMIN 3.2 g/dL (3.5-5.0); ALT/SGPT 51 U/L (9-52); AST/SGOT 28 U/L (14-36); BLOOD UREA NITROGEN 14 mg/dL (7-17); CALCIUM 8.6 mg/dl (8.6-10.4); GFR AFRICAN-AMERICAN > 60; GFR NON-AFRICAN AMERICAN > 60
[2017-11-02] MEDS ORDERED: Propofol 10 mg/ml Inj (20 ML) ONE ×2 (09:11)
--- NOTE | 2017-11-02 13:41 | CP.PCM.PN ---
Subjective - Date & Time of Evaluation Date of Evaluation: 11/02/17 Time of Evaluation: 13:41 - Subjective Subjective: Patient has advanced dementia difficult to evaluate symptoms and complaints. And review of systems Afebrile blood pressure 130/80 mmHg. Lungs are clear to auscultation and percussion. Heart S1-S2 normal. Abdomen is soft nontender. Patient has a poor intake. Patient's family will have to participate in the feeding of the patient through the PEG Objective - Vital Signs/Intake and Output Vital Signs (last 24 hours): Temp Pulse Resp BP Pulse Ox 97.5 F L 75 15 115/63 100 11/02/17 10:11 11/02/17 10:11 11/02/17 10:11 11/02/17 10:11 11/02/17 10:11 Intake and Output: 11/02/17 11/02/17 11:59 23:59 Intake Total 50 Balance 50 - Medications Medications: Current Medications Acetaminophen (Tylenol 650 Mg Supp) 650 mg [place] Q6H PRN PRN Reason: Fever >100.4 F Piperacillin Sod/Tazobactam Sod (Zosyn 2.25 Gm Iv Premix) 2.25 gm in 50 mls @ 100 mls/hr IVPB Q8H ERNIE PRN Reason: Protocol Last Admin: 11/02/17 12:56 Dose: 100 mls/hr Pantoprazole Sodium (Protonix Inj) 40 mg IVP DAILY [facility] Last Admin: 11/02/17 12:56 Dose: 40 mg Tramadol HCl (Ultram) 50 mg PO TID PRN PRN Reason: Pain, moderate (4-7) - Labs Labs: 11/02/17 06:29 11/02/17 06:29 PT 14.1 SECONDS (9.7-12.2) H 10/21/17 20:58 INR 1.3 10/21/17 20:58 APTT 38 SECONDS (21-34) H 10/21/17 20:58
--- NOTE | 2017-11-02 15:40 | CP.PCM.PN ---
Subjective - Date & Time of Evaluation Date of Evaluation: 11/02/17 Time of Evaluation: 09:00 - Subjective Subjective: Patient seen and examined. PEG to be placed by GI team. No further surgical intervention required at this present time. Objective - Vital Signs/Intake and Output Vital Signs (last 24 hours): Temp Pulse Resp BP Pulse Ox 97.5 F L 75 15 115/63 100 11/02/17 10:11 11/02/17 10:11 11/02/17 10:11 11/02/17 10:11 11/02/17 10:11 Intake and Output: 11/02/17 11/02/17 06:59 18:59 Intake Total 50 Balance 50 - Medications Medications: Current Medications Acetaminophen (Tylenol 650 Mg Supp) 650 mg [place] Q6H PRN PRN Reason: Fever >100.4 F Piperacillin Sod/Tazobactam Sod (Zosyn 2.25 Gm Iv Premix) 2.25 gm in 50 mls @ 100 mls/hr IVPB Q8H ERNIE PRN Reason: Protocol Last Admin: 11/02/17 12:56 Dose: 100 mls/hr Pantoprazole Sodium (Protonix Inj) 40 mg IVP DAILY [facility] Last Admin: 11/02/17 12:56 Dose: 40 mg Tramadol HCl (Ultram) 50 mg PO TID PRN PRN Reason: Pain, moderate (4-7) - Labs Labs: 11/02/17 06:29 11/02/17 06:29 PT 14.1 SECONDS (9.7-12.2) H 10/21/17 20:58 INR 1.3 10/21/17 20:58 APTT 38 SECONDS (21-34) H 10/21/17 20:58 - Constitutional Appears: No Acute Distress - ENT Exam ENT Exam: Mucous Membranes Moist - Cardiovascular Exam Cardiovascular Exam: +S1, +S2 - GI/Abdominal Exam GI & Abdominal Exam: Soft
[2017-11-02 17:15] VITALS: RESP 20
--- NOTE | 2017-11-02 22:55 | CP.PCM.PN ---
Subjective - Date & Time of Evaluation Date of Evaluation: 11/02/17 Time of Evaluation: 22:55 - Subjective Subjective: CHIEF COMPLAINTS TODAY : S/P OR POD # 6 LAPRASCOPIC CHOLYCYSTECTOMY 10/27/17. afebrile. NO NEW COMPLAINTS. ROS.on observation only . PT NON VERBAL HEENT : N. Resp : No cough, wheezing ,pleuritic CP ,or hemoptysis Cardio : No anginal CP, PND, orthopnea, palpitation GI : SOFT ,DRESSING IN PLACE . DRAIN REMOVED. 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 Musculoskel : No joint swelling , Derm : No rash Psych : Normal affect. Ext : No swelling ,calf pain PE. Pt. is awake in no distress. V.S As noted in the chart Head ,ear nose,throat and eyes : Normal. Neck : Supple with normal carotids. Lungs: CLEAR ANTERIORLY Heart : S1 & S2 normal with S4. No murmur. Abd : SOFT. POST OPERATIVE . DRAIN REMOVED Neuro : Moves all ext. with no localized deficit. Ext : No edema with intact pulses.Non tender calves Derm : No rashes or decubitus ulcer. LABS/RADIOLOGY: REVIEWED CXR 10/24/17 NO ACTIVE DISEASE BLOOD CULTURES NEGATIVE TO DATE PATH REPORT; chronic cholycystitis/cholelithiasis no malignancy ASSESSMENT. S/P LAPRASCOPIC CHOLYCYSTECTOMY CHOLELITHIASIS-LFTS- IMPROVING ADVANCED DEMENTIA. POOR ORAL -INTAKE PLAN : CONTINUE iv ANTIBIOTICS. IV ZOSYN 2.25 GRAMS EVERY 8 HOURLY X 2 DAYS MORE i.e 11/02, 11/03/17. POST-OPTIVE CARE PER SURGERY. MONITOR h&h. SURGERY RECOMMENDING PEG. PEG TO BE PLACED BY GI. PER FAMILY Objective - Vital Signs/Intake and Output Vital Signs (last 24 hours): Temp Pulse Resp BP Pulse Ox 98.1 F 86 20 107/56 L 95 11/02/17 16:00 11/02/17 16:00 11/02/17 16:00 11/02/17 16:00 11/02/17 16:00 - Medications Medications: Current Medications Acetaminophen (Tylenol 650 Mg Supp) 650 mg [place] Q6H PRN PRN Reason: Fever >100.4 F Piperacillin Sod/Tazobactam Sod (Zosyn 2.25 Gm Iv Premix) 2.25 gm in 50 mls @ 100 mls/hr IVPB Q8H ERNIE PRN Reason: Protocol Last Admin: 11/02/17 20:00 Dose: 100 mls/hr Pantoprazole Sodium (Protonix Inj) 40 mg IVP DAILY [facility] Last Admin: 11/02/17 12:56 Dose: 40 mg Tramadol HCl (Ultram) 50 mg PO TID PRN PRN Reason: Pain, moderate (4-7) - Labs Labs: 11/02/17 06:29 11/02/17 06:29 PT 14.1 SECONDS (9.7-12.2) H 10/21/17 20:58 INR 1.3 10/21/17 20:58 APTT 38 SECONDS (21-34) H 10/21/17 20:58 Assessment and Plan (1) Pneumonia Status: Acute (2) Acute cholecystitis Status: Acute (3) Subdural hematoma, post-traumatic Status: Acute (4) Alzheimer's type dementia Status: Acute
[2017-11-03] MEDS: Piperacill/Tazo 2.25gm in Dex 2.25 GM/50 ML BAG IVPB SCH ×3 (04:30→20:00)
[2017-11-03 09:10] LABS: HEMOGLOBIN 11.8 g/dL (11.0-16.0); MEAN CORPUSCULAR HGB CONC 34.1 g/dL (33.0-37.0); MEAN PLATELET VOLUME 6.9 fL (7.2-11.7); RBC 3.68 Mil/uL (3.80-5.20); RED CELL DISTRIBUTION WIDTH 13.9 % (11.5-14.5); WHITE BLOOD COUNT 8.6 K/uL (4.8-10.8)
[2017-11-03 09:40] LABS: ALB/GLOB RATIO 1.1 (1.0-2.1); ALBUMIN 3.7 g/dL (3.5-5.0); ALT/SGPT 37 U/L (9-52); AST/SGOT 58 U/L (14-36); BLOOD UREA NITROGEN 14 mg/dL (7-17); CALCIUM 9.2 mg/dl (8.6-10.4); GFR AFRICAN-AMERICAN > 60; GFR NON-AFRICAN AMERICAN > 60
--- NOTE | 2017-11-03 11:50 | CP.PCM.PN ---
Subjective - Date & Time of Evaluation Date of Evaluation: 11/03/17 Time of Evaluation: 11:50 - Subjective Subjective: Patient has advanced dementia difficult to evaluate symptoms and complaints. And review of systems Afebrile blood pressure 130/80 mmHg. Lungs are clear to auscultation and percussion. Heart S1-S2 normal. Abdomen is soft nontender. Patient has a poor intake. Patient's family will have to participate in the feeding of the patient through the PEG Objective - Vital Signs/Intake and Output Vital Signs (last 24 hours): Temp Pulse Resp BP Pulse Ox 97.3 F L 66 20 99/59 L 95 11/03/17 07:34 11/03/17 07:34 11/03/17 07:34 11/03/17 07:34 11/03/17 07:34 Intake and Output: 11/02/17 11/03/17 23:59 11:59 Intake Total 50 Balance 50 - Medications Medications: Current Medications Acetaminophen (Tylenol 650 Mg Supp) 650 mg [place] Q6H PRN PRN Reason: Fever >100.4 F Piperacillin Sod/Tazobactam Sod (Zosyn 2.25 Gm Iv Premix) 2.25 gm in 50 mls @ 100 mls/hr IVPB Q8H ERNIE PRN Reason: Protocol Last Admin: 11/03/17 04:30 Dose: 100 mls/hr Pantoprazole Sodium (Protonix Inj) 40 mg IVP DAILY [facility] Last Admin: 11/03/17 10:00 Dose: 40 mg Tramadol HCl (Ultram) 50 mg PO TID PRN PRN Reason: Pain, moderate (4-7) - Labs Labs: 11/03/17 08:55 11/03/17 08:55 PT 14.1 SECONDS (9.7-12.2) H 10/21/17 20:58 INR 1.3 10/21/17 20:58 APTT 38 SECONDS (21-34) H 10/21/17 20:58
--- NOTE | 2017-11-03 12:57 | PN ---
DATE: 11/03/2017 LOCATION: 357, bed B. SUBJECTIVE: The 62-year-old female, post PEG insertion, seen and examined in rounds, tolerating PEG feeding well, with period of restlessness and semi-disorientation and agitation. No reported active bleeding. Abdominal binder is still in place. The entire chart is reviewed including but not limited to the most recent lab and radiology study results, current and the previous medication list, current and the previous medical events. Case discussed with the staff at length. It has to be mentioned that no reported chills or fever, active bleeding, chest pain, significant shortness of breath, or palpitation and today's lab results still pending. PHYSICAL EXAMINATION: GENERAL: A 62-year-old female. VITAL SIGNS: Afebrile with pulse of 70, respiratory rate 20 to 22, blood pressure 106/62. HEENT: Showed pale, dry oral mucous membranes. Nonicteric sclerae. LUNGS: Few scattered crepitation. Decreased air entry at bases. HEART: Positive S1 and S2. ABDOMEN: Soft with mild generalized tenderness, slightly distended, PEG tube is in place with clean wound and clean dressing. EXTREMITIES: Without significant clubbing, cyanosis, or edema. NEUROLOGIC: No reported new neurological deficits, sensory, or motor. IMPRESSION: 1. Failure to thrive. 2. Malnutrition with hypoalbuminemia and hypoproteinemia. 3. Status post percutaneous endoscopic gastrostomy insertion. 4. Known history of Alzheimer disease with dementia. 5. Recent history of status post cholecystectomy. SUGGESTION: 1. Continue current management. 2. Increase the rate of feeding gradually. 3. Proton pump inhibitors. 4. Guaiac all the stool daily x3. 5. Further recommendation to follow. Bri Villanueva MD
--- NOTE | 2017-11-03 23:57 | CP.PCM.PN ---
Subjective - Date & Time of Evaluation Date of Evaluation: 11/03/17 Time of Evaluation: 23:57 Objective - Vital Signs/Intake and Output Vital Signs (last 24 hours): Temp Pulse Resp BP Pulse Ox 97.8 F 76 20 111/76 95 11/03/17 16:00 11/03/17 16:00 11/03/17 16:00 11/03/17 16:00 11/03/17 16:00 Intake and Output: 11/03/17 11/04/17 18:59 06:59 Intake Total 95 Balance 95 - Medications Medications: Current Medications Acetaminophen (Tylenol 650 Mg Supp) 650 mg [place] Q6H PRN PRN Reason: Fever >100.4 F Piperacillin Sod/Tazobactam Sod (Zosyn 2.25 Gm Iv Premix) 2.25 gm in 50 mls @ 100 mls/hr IVPB Q8H ERNIE PRN Reason: Protocol Last Admin: 11/03/17 20:00 Dose: 100 mls/hr Pantoprazole Sodium (Protonix Inj) 40 mg IVP DAILY [facility] Last Admin: 11/03/17 10:00 Dose: 40 mg Tramadol HCl (Ultram) 50 mg PO TID PRN PRN Reason: Pain, moderate (4-7) - Labs Labs: 11/03/17 08:55 11/03/17 08:55 PT 14.1 SECONDS (9.7-12.2) H 10/21/17 20:58 INR 1.3 10/21/17 20:58 APTT 38 SECONDS (21-34) H 10/21/17 20:58 Assessment and Plan (1) Pneumonia Status: Acute (2) Acute cholecystitis Status: Acute (3) Subdural hematoma, post-traumatic Status: Acute (4) Alzheimer's type dementia Status: Acute
[2017-11-04] MEDS: Piperacill/Tazo 2.25gm in Dex 2.25 GM/50 ML BAG IVPB SCH ×2 (03:20→12:50)
--- NOTE | 2017-11-04 11:49 | CP.PCM.DIS ---
Provider - Provider Date of Admission: 10/22/17 01:13 Attending physician: Blessing Denson MD Time Spent in preparation of Discharge (in minutes): 35 Hospital Course - Lab Results Lab Results: Micro Results 10/22/17 01:25 Blood-Venous Blood Culture - Final NO GROWTH AFTER 5 DAYS 10/22/17 01:25 Blood-Venous Blood Culture - Final NO GROWTH AFTER 5 DAYS 10/22/17 01:25 Blood-Venous Gram Stain - Final TEST NOT PERFORMED 10/22/17 12:38 Naris MRSA Culture (Admit) - Final MRSA NOT DETECTED 10/22/17 02:14 Urine,Catheterized Urine Culture - Final No Growth (<1,000 CFU/ML) Most Recent Lab Values WBC 8.6 K/uL (4.8-10.8) 11/03/17 08:55 RBC 3.68 Mil/uL (3.80-5.20) L 11/03/17 08:55 Hgb 11.8 g/dL (11.0-16.0) 11/03/17 08:55 Hct 34.6 % (34.0-47.0) 11/03/17 08:55 MCV 94.0 fL (81.0-99.0) 07 08:55 MCH 32.0 pg (27.0-31.0) H 11/03/17 08:55 MCHC 34.1 g/dL (33.0-37.0) 11/03/17 08:55 RDW 13.9 % (11.5-14.5) 11/03/17 08:55 Plt Count 340 K/uL (130-400) 11/03/17 08:55 MPV 6.9 fL (7.2-11.7) L 11/03/17 08:55 Neut % (Auto) 55.5 % (50.0-75.0) 11/02/17 06:29 Lymph % (Auto) 32.1 % (20.0-40.0) 11/02/17 06:29 Ralls % (Auto) 6.9 % (0.0-10.0) 11/02/17 06:29 Eos % (Auto) 4.4 % (0.0-4.0) H 11/02/17 06:29 Baso % (Auto) 1.1 % (0.0-2.0) 11/02/17 06:29 Neut # (Auto) 4.0 K/uL (1.8-7.0) 11/02/17 06:29 Lymph # (Auto) 2.3 K/uL (1.0-4.3) 11/02/17 06:29 Ralls # (Auto) 0.5 K/uL (0.0-0.8) 11/02/17 06:29 Eos # (Auto) 0.3 K/uL (0.0-0.7) 11/02/17 06:29 Baso # (Auto) 0.1 K/uL (0.0-0.2) 11/02/17 06:29 PT 14.1 SECONDS (9.7-12.2) H 10/21/17 20:58 INR 1.3 10/21/17 20:58 APTT 38 SECONDS (21-34) H 10/21/17 20:58 Sodium 142 mmol/L (132-148) 11/03/17 08:55 Potassium 5.0 mmol/L (3.6-5.2) 11/03/17 08:55 Chloride 103 mmol/L (98-107) 11/03/17 08:55 Carbon Dioxide 28 mmol/L (22-30) 11/03/17 08:55 Anion Gap 16 (10-20) 11/03/17 08:55 BUN 14 mg/dL (7-17) 11/03/17 08:55 Creatinine 0.6 mg/dL (0.7-1.2) L 11/03/17 08:55 Est GFR ( Amer) > 60 11/03/17 08:55 Est GFR (Non-Af Amer) > 60 11/03/17 08:55 POC Glucose (mg/dL) 124 mg/dL (65-110) H 10/29/17 08:18 Random Glucose 86 mg/dL (65-105) 11/03/17 08:55 Calcium 9.2 mg/dl (8.6-10.4) 11/03/17 08:55 Magnesium 2.0 mg/dL (1.6-2.3) 10/21/17 20:58 Total Bilirubin 1.5 mg/dL (0.2-1.3) H 11/03/17 08:55 AST 58 U/L (14-36) H D 11/03/17 08:55 ALT 37 U/L (9-52) 11/03/17 08:55 Alkaline Phosphatase 202 U/L (38-126) H 11/03/17 08:55 Total Protein 7.0 g/dL (6.3-8.3) 11/03/17 08:55 Albumin 3.7 g/dL (3.5-5.0) 11/03/17 08:55 Globulin 3.3 gm/dL (2.2-3.9) 11/03/17 08:55 Albumin/Globulin Ratio 1.1 (1.0-2.1) 11/03/17 08:55 Lipase 67 U/L (23-300) 10/21/17 20:58 Urine Color [place] (YELLOW) 10/21/17 21:24 Urine Clarity Hazy (Clear) 10/21/17 21:24 Urine pH 6.0 (5.0-8.0) 10/21/17 21:24 Ur Specific [place] 1.020 (1.003-1.030) 10/21/17 21:24 Urine Protein Negative mg/dL (NEGATIVE) 10/21/17 21:24 Urine Glucose (UA) Normal mg/dL (Normal) 10/21/17 21:24 Urine Ketones Negative mg/dL (NEGATIVE) 10/21/17 21:24 Urine Blood Negative (NEGATIVE) 10/21/17 21:24 Urine Nitrate Negative (NEGATIVE) 10/21/17 21:24 Urine Bilirubin 1+ (NEGATIVE) H 10/21/17 21:24 Urine Urobilinogen 4.0 mg/dL (0.2-1.0) H 10/21/17 21:24 Ur Leukocyte Esterase Neg [place]/uL (Negative) 10/21/17 21:24 Urine WBC (Auto) 2 /hpf (0-5) 10/21/17 21:24 Urine RBC (Auto) 5 /hpf (0-3) H 10/21/17 21:24 Ur Squamous Epith Cells < 1 /hpf (0-5) 10/21/17 21:24 Amorphous Sediment Rare /ul (<OCC) H 10/21/17 21:24 Urine Bacteria Occ (<OCC) H 10/21/17 21:24 - Hospital Course Hospital Course: Patient was brought to the emergency room by the daughter with an abnormal liver function test done outpatient by the PMD. Patient also had a history of vomiting further history not available as patient has severe dementia patient was admitted on the floor. IV antibiotics and IV fluids patient improved. Subsequently patient underwent a laparoscopic cholecystectomy without any postoperative events. Postop patient had very poor appetite and a feeding pack was inserted. Currently patient has severe dementia bedridden and was transferred to rehab center for further treatment. Discharge Exam - Head Exam Head Exam: ATRAUMATIC, NORMAL INSPECTION, NORMOCEPHALIC Discharge Plan - Follow Up Plan Condition: GUARDED Disposition: HOME/ ROUTINE Instructions: Pneumonia, Adult (DC), Cholecystitis (DC) Additional Instructions: -PLACE UNDER THE SERVICE OF DR. LESLIE WHILE AT [facility]---CALL DR. LESLIE UPON ARRIVAL FOR ADMITTING ORDERS. -CONTINUE MEDICATIONS PER THE MED REC FORM---CHANGES CAN BE MADE BY ATTENDING. -PER DR. CRUZ (ID) RECOMMENDATIONS, CONTINUE THE FOLLOWING: ZOSYN 2.25 GM IV Q8 HOURS FOR 3 MORE DAYS (START ON 11/04/17 AND LAST DAY TO BE GIVEN IS THE EVENING OF 11/07/17). -HEPLOCK CARE PER FACILITY PROTOCOL. MAY REMOVE HEPLOCK ONCE THE ANTIBIOTICS ARE COMPLETED. -FALL PRECAUTIONS. -ASPIRATION PRECAUTIONS. -CONTINUE PEG FEEDINGS FOLLOWS: -FOR QUESTIONS OR CONCERNS REGARDING RECENT HOSPITALIZATION, CONTACT DR. DENSON' S OFFICE. Referrals: Grey Ruelas MD [Staff Provider] - Christiano Leslie MD [Staff Provider] - Bri Ibanez [Staff Provider] - Harpreet Cruz MD [Staff Provider] - Blessing Denson MD [Staff Provider] -
--- NOTE | 2017-11-04 11:51 | CP.PCM.PN ---
Subjective - Date & Time of Evaluation Date of Evaluation: 11/04/17 Time of Evaluation: 11:50 - Subjective Subjective: PT CLEARED FOR D/C TODAY TO [facility]--DR. DRUHAM TO BE ATTENDING WHILE THERE AND DRS. ANGUIANO AND MARVA IN AGREEMENT. PT TOLERATING PEG FEEDING. DISCUSSED WITH DR. DIANA AND PT TO BE D/C WITH HEPLOCK FOR 3 MORE DAYS OF IV ABX (SEE BELOW). CM AND SW AWARE OF D/C. TO ARRANGE TRANSPORTATION. NO FURTHER ORDERS. -PLACE UNDER THE SERVICE OF DR. DURHAM WHILE AT [facility]---CALL DR. DURHAM UPON ARRIVAL FOR ADMITTING ORDERS. -CONTINUE MEDICATIONS PER THE MED REC FORM---CHANGES CAN BE MADE BY ATTENDING. -PER DR. DIANA (ID) RECOMMENDATIONS, CONTINUE THE FOLLOWING: ZOSYN 2.25 GM IV Q8 HOURS FOR 3 MORE DAYS (START ON 11/04/17 AND LAST DAY TO BE GIVEN IS THE EVENING OF 11/07/17). -HEPLOCK CARE PER FACILITY PROTOCOL. MAY REMOVE HEPLOCK ONCE THE ANTIBIOTICS ARE COMPLETED. -FALL PRECAUTIONS. -ASPIRATION PRECAUTIONS. -CONTINUE PEG FEEDINGS FOLLOWS: GLUCERNA 1.5 TO INFUSE AT 40 ML/HR CONTINUOUS. WATER FLUSH OF 100 ML EVERY 8 HOURS. -MAINTAIN ABDOMINAL BINDER ON PLEASE. -FOR QUESTIONS OR CONCERNS REGARDING RECENT HOSPITALIZATION, CONTACT DR. ANGUIANO' S OFFICE. Objective - Vital Signs/Intake and Output Vital Signs (last 24 hours): Temp Pulse Resp BP Pulse Ox 97.5 F L 66 20 101/59 L 96 11/04/17 07:54 11/04/17 07:54 11/04/17 07:54 11/04/17 07:54 11/04/17 07:54 Intake and Output: 11/04/17 11/04/17 06:59 18:59 Intake Total 350 Balance 350 - Medications Medications: Current Medications Acetaminophen (Tylenol 650 Mg Supp) 650 mg MA Q6H PRN PRN Reason: Fever >100.4 F Piperacillin Sod/Tazobactam Sod (Zosyn 2.25 Gm Iv Premix) 2.25 gm in 50 mls @ 100 mls/hr IVPB Q8H ERNIE PRN Reason: Protocol Last Admin: 11/04/17 03:20 Dose: 100 mls/hr Pantoprazole Sodium (Protonix Inj) 40 mg IVP DAILY ERNIE Last Admin: 11/04/17 11:00 Dose: 40 mg Tramadol HCl (Ultram) 50 mg PO TID PRN PRN Reason: Pain, moderate (4-7) - Labs Labs: 11/03/17 08:55 11/03/17 08:55 PT 14.1 SECONDS (9.7-12.2) H 10/21/17 20:58 INR 1.3 10/21/17 20:58 APTT 38 SECONDS (21-34) H 10/21/17 20:58
[2017-11-04 17:15] VITALS: BP 98/62; PULSE 65; TEMP 97.9; O2SAT 99
== END 2017-11-04 17:45 | DRG 417 ==
LOC: C.ER 20:23 → C.3T 10-22 01:13
PROVIDERS: ADMIT Internal Medicine Cardiovascular Disease; ATTEND Internal Medicine Cardiovascular Disease
PROC: 0FT44ZZ Resection of Gallbladder, Percutaneous Endoscopic Approach (ICD-10-PCS; principal; 2017-10-27 08:30)
PROC: 0DH63UZ Insertion of Feeding Device into Stomach, Percutaneous Approach (ICD-10-PCS; 2017-11-02)
DX: K80.12 Calculus of gallbladder with acute and chronic cholecystitis without obstruction (principal); J18.9 Pneumonia, unspecified organism; E46 Unspecified protein-calorie malnutrition; Z68.1 Body mass index [BMI] 19.9 or less, adult; G30.9 Alzheimer's disease, unspecified; F02.80 Dementia in other diseases classified elsewhere, unspecified severity, without behavioral disturbance, psychotic disturbance, mood disturbance, and anxiety; R62.7 Adult failure to thrive; Z74.01 Bed confinement status; R13.10 Dysphagia, unspecified; K21.0 Gastro-esophageal reflux disease with esophagitis

== ENCOUNTER 2018-02-22 07:54 | Day surgery (SDC) | payer OTHER ==
[2018-02-22 08:28] VITALS: BMI 18.3
[2018-02-22 09:04] VITALS: O2SAT 100
[2018-02-22] MEDS ORDERED: Propofol 10 mg/ml Inj (20 ML) ONE (09:19)
[2018-02-22] MEDS ORDERED: Lactated Ringer's 1,000 ML IV ONE (09:20)
--- NOTE | 2018-02-22 09:43 | CP.SDSHP ---
Same Day Surgery H & P - History Proposed Procedure: EGD / PEG REMOVAL Pre-Op Diagnosis: SEE NOTES - Previous Medical/Surgical History Cardiac: Hypertension Neuro: Other Misc: Other Pain: 2.Mild Pain - Allergies Allergies: Allergies No Known Allergies Allergy (Verified 02/22/18 08:27) - Physical Exam General Appearance: N Vital Signs: Vital Signs 02/22/18 02/22/18 08:39 09:01 Temperature 99.1 F Pulse Rate 68 68 Respiratory 19 Rate Blood Pressure 101/84 O2 Sat by Pulse 100 Oximetry Mental Status: Confused Neuro: Other Heart: Other Lungs: WNL GI: Other - {Optional Preform as Required} Breast: WNL Abdomen: Other Rectal: Other Integument: WNL : WNL Ortho: WNL ENT: WNL - Impression Pt. Evaluated Today:Candidate for Anesthesia & Procedure: Yes - Date & Time Time: 09:43 Short Stay Discharge - Short Stay Discharge Admitting Diagnosis/Reason for Visit: FOREIGN BODY REMOVAL Disposition: HOME/ ROUTINE
[2018-02-22] MEDS ORDERED: ePHEDrine 50 mg/ml Inj ONE (09:45)
[2018-02-22] MEDS ORDERED: metroNIDAZOLE IV 500 mg/100 ml 500 MG/100 ML BAG IVPB ONE (10:00)
[2018-02-22 10:19] VITALS: TEMP 97.6
[2018-02-22 13:01] VITALS: BP 100/54
[2018-02-22 13:03] VITALS: PULSE 86; RESP 16
== END 2018-02-22 11:00 | disposition home or self-care (01) ==
LOC: C.ENDO 07:54
PROVIDERS: ATTEND Specialist
DX: Z43.1 Encounter for attention to gastrostomy (principal); I10 Essential (primary) hypertension; R10.84 Generalized abdominal pain; K44.9 Diaphragmatic hernia without obstruction or gangrene
CPT/HCPCS: 43247; 88300; J2001; J2704; J7120